=== PATIENT | female | born 1945 | race Caucasian/White ===

== ENCOUNTER 2017-02-09 16:12 | Emergency (ER) | payer MEDICARE ==
[2017-02-09] MEDS ORDERED: HYDROmorphone* 1 MG/ML 1 ML SYR IV ONE ×2 (17:13→18:43)
[2017-02-09] MEDS ORDERED: Ondansetron INJ* 2 MG/ML VIAL IV ONE (17:14)
[2017-02-09] MEDS ORDERED: NS 0.9% 1000 ML* 1,000 ML IV ONE (17:14)
[2017-02-09 17:25] LABS: Hematocrit 45 % (35-47); Hemoglobin 15.1 g/dl (12.0-16.0); Mean Corpuscular HGB Conc 33 g/dl (31-36); Mean Corpuscular Hemoglobin 29 pg (27-31); Mean Corpuscular Volume 88 fL (80-97); Mean Platelet Volume 8 um3 (7.4-10.4); Red Blood Count 5.14 10^6/ul (4.0-5.4); Red Cell Distribution Width 15 % (10.5-15); White Blood Count 7.6 10^3/ul (3.5-10.8)
[2017-02-09 17:38] LABS: Calcium 9.9 mg/dL (8.6-10.3); EGFR African American 98.2 (>60); EGFR Non-African American 76.4 (>60); Globulin 2.9 g/dL (2-4); Potassium 3.6 mmol/L (3.5-5.0); Total Bilirubin 0.6 mg/dL (0.2-1.0); Total Protein 6.9 g/dL (6.4-8.9)
[2017-02-09] MEDS ORDERED: Iohexol 350* (CONTRAST) 500 ML MDV IV ONE (17:53)
--- NOTE | 2017-02-09 18:42 | ED ---
An Patel Anna, scribed for Paola Lopez MD on 02/09/17 at 1707 . Back Pain - HPI Summary HPI Summary: Patient is a 71 y/o female coming to [facility] presenting with constant, worsening back pain between her shoulder blades that began two days ago. Yesterday the pain became worse. She went to the chiropractor yesterday, but it did not alleviate the pain. When she woke up this morning, the pain was at its worst. The pain is now described as severity of 9/10. The pain radiates to her left chest and down her left arm. She denies SOB. She was seen at [facility] this afternoon, and she had an EKG done, which they said looked good. They also did a CXR at that time. - History of Current Complaint Chief Complaint: EDChestPainROMI Stated Complaint: BACK CHEST LEFT ARM PAIN Time Seen by Provider: 02/09/17 16:40 Hx Obtained From: Patient, Family/Coffee Shop Aide - Accompanied by daughter Pain Intensity: 9 - Allergies/Home Medications Allergies/Adverse Reactions: Allergies Allergy/AdvReac Type Severity Reaction Status Date / Time No Known Allergies Allergy Verified 05/18/14 14:01 PMH/Surg Hx/FS Hx/Imm Hx Endocrine/Hematology History: Denies: Hx Diabetes Cardiovascular History: Denies: Hx Hypertension, Hx Pacemaker/ICD History: Denies: Hx Renal Disease Musculoskeletal History: Denies: Hx Osteoporosis Sensory History: Denies: Hx Hearing Aid Psychiatric History: Denies: Hx Panic Disorder - Cancer History Hx Chemotherapy: No Hx Radiation Therapy: No - Surgical History Surgery Procedure, Year, and Place: TONSILECTOMY. Rt HAND - NERVE DAMAGE - REPAIRED. HYSTERECTOMY. BREAST BIOPSY - UNSURE IF CLIP WAS PLACE. D & C Infectious Disease History: No Infectious Disease History: Denies: Traveled Outside the [place] in Last 30 Days - Family History Known Family History: Negative: Cardiac Disease, Diabetes - Social History Lives: Alone Alcohol Use: None Hx Substance Use: No Substance Use Type: Reports: None Hx Tobacco Use: No Smoking Status (MU): Never Smoked Tobacco Review of Systems Positive: Chest Pain - Back pain radiates to chest Negative: Shortness Of Breath Positive: Arthralgia - Back pain radiates down left arm, Myalgia All Other Systems Reviewed And Are Negative: Yes Physical Exam Triage Information Reviewed: Yes Vital Signs On Initial Exam: Initial Vitals Temp Pulse Resp BP Pulse Ox 96.8 F 76 18 217/103 100 02/09/17 16:14 02/09/17 16:14 02/09/17 16:14 02/09/17 16:14 02/09/17 16:14 Vital Signs Reviewed: Yes Appearance: Positive: Well-Appearing, No Pain Distress Skin: Positive: Warm, Skin Color Reflects Adequate Perfusion, Dry Eyes: Positive: EOMI, JAKUB ENT: Positive: Pharynx normal, TMs normal Neck: Positive: Supple, Nontender Respiratory/Lung Sounds: Positive: Clear to Auscultation, Breath Sounds Present. Negative: Rales, Rhonchi, Wheezes Cardiovascular: Positive: RRR. Negative: Murmur, Rub, Other - gallops Abdomen Description: Positive: Nontender, Soft. Negative: Distended, Guarding, Other: - rebound Bowel Sounds: Positive: Present Musculoskeletal: Positive: Strength/ROM Intact, Other - Tender spasm muscle at about T4-T5, left paraspinal.. Negative: Edema Left, Edema Right Neurological: Positive: Normal, Sensory/Motor Intact, Alert, Oriented to Person Place, Time, CN Intact II-III Psychiatric: Positive: Affect/Mood Appropriate Diagnostics - Vital Signs Vital Signs Temp Pulse Resp BP Pulse Ox 02/09/17 16:14 96.8 F 76 18 217/103 100 - Laboratory Lab Results: Lab Results 02/09/17 02/09/17 02/09/17 Range/Units 17:00 17:00 17:00 WBC 7.6 (3.5-10.8) 10^3/ul RBC 5.14 (4.0-5.4) 10^6/ul Hgb 15.1 (12.0-16.0) g/dl Hct 45 (35-47) % MCV 88 (80-97) fL MCH 29 (27-31) pg MCHC 33 (31-36) g/dl RDW 15 (10.5-15) % Plt Count 269 (150-450) 10^3/ul MPV 8 (7.4-10.4) um3 Neut % (Auto) 63.5 (38-83) % Lymph % (Auto) 26.1 (25-47) % Door % (Auto) 7.9 (1-9) % Eos % (Auto) 1.9 (0-6) % Baso % (Auto) 0.6 (0-2) % Absolute Neuts (auto) 4.8 (1.5-7.7) 10^3/ul Absolute Lymphs (auto) 2.0 (1.0-4.8) 10^3/ul Absolute Monos (auto) 0.6 (0-0.8) 10^3/ul Absolute Eos (auto) 0.1 (0-0.6) 10^3/ul Absolute Basos (auto) 0 (0-0.2) 10^3/ul Absolute Nucleated RBC 0 10^3/ul Nucleated RBC % 0 Sodium 138 (133-145) mmol/L Potassium 3.6 (3.5-5.0) mmol/L Chloride 106 (101-111) mmol/L Carbon Dioxide 26 (22-32) mmol/L Anion Gap 6 (2-11) mmol/L BUN 12 (6-24) mg/dL Creatinine 0.75 (0.51-0.95) mg/dL Est GFR ( Amer) 98.2 (>60) Est GFR (Non-Af Amer) 76.4 (>60) BUN/Creatinine Ratio 16.0 (8-20) Glucose 94 (70-100) mg/dL Lactic Acid 0.9 (0.5-2.0) mmol/L Calcium 9.9 (8.6-10.3) mg/dL Total Bilirubin 0.60 (0.2-1.0) mg/dL AST 20 (13-39) U/L ALT 18 (7-52) U/L Alkaline Phosphatase 60 (34-104) U/L Troponin I 0.00 (<0.04) ng/mL Total Protein 6.9 (6.4-8.9) g/dL Albumin 4.0 (3.2-5.2) g/dL Globulin 2.9 (2-4) g/dL Albumin/Globulin Ratio 1.4 (1-3) Result Diagrams: 02/09/17 17:00 02/09/17 17:00 Lab Statement: Any lab studies that have been ordered have been reviewed, and results considered in the medical decision making process. - EKG 1265 Cardiac Rate: Bradycardia - 59 bpm EKG Rhythm: Sinus Rhythm ST Segment: Normal Ectopy: None Back Pain Course/Dx - Course Course Of Treatment: 71 yo female quite hypertensive on arrival no hx of htn with back pain, there is a notable area of spasm but given sbp over 200, a dissection work has been initiated. Pt is awaiting a reading on a CTA chest, abd pelvis, if neg she will go home with meds already ordered at her pharmacy. pt to be signed out to Dr. Gutierrez for final dispostion - Diagnoses Provider Diagnoses: Back pain Discharge - Discharge Plan Condition: Stable Disposition: OTHER Discharge Disposition Comment: final disposition by Dr. Gutierrez The documentation as recorded by the An renteria Anna accurately reflects the service I personally performed and the decisions made by me, Paola Lopez MD.
[2017-02-09] MEDS ORDERED: LORazepam INJ* 2 MG/ML 1 ML VIAL IV PUSH ONE (18:44)
--- NOTE | 2017-02-09 18:47 | RAD ---
INDICATION: Back pain radiating to the chest and LEFT arm. Hypertensive. Nausea. COMPARISON: August 05, 2015 chest radiograph TECHNIQUE: Multidetector CT images were obtained from the lung apices to the ischial tuberosities with 100 mL Omnipaque 350 IV contrast. Arterial phase enhancement. Multiplanar reformation including maximum intensity projections. 3-D arterial volume rendering. No oral contrast administered. CHEST REPORT: Aside from minimal subsegmental atelectasis or pleural-parenchymal scarring the lungs and pleural spaces are clear. Negative for pneumothorax. Negative for thoracic lymphadenopathy, cardiomegaly, pericardial effusion. Normal diameter thoracic aorta with minimal atherosclerotic plaque. Negative for aortic dissection. Unremarkable aortic arch branch vessels. No abnormality of the central pulmonary arteries evident. Negative for fracture or suspicious thoracic osseous lesion. Multilevel mild thoracic degenerative spondylosis. Mild osteoarthritis at the shoulders. CHEST IMPRESSION: 1. Negative for aneurysm or dissection of the thoracic aorta. 2. No acute intrathoracic process evident. ABDOMEN PELVIS REPORT: Arterial phase only enhancement limits assessment of the solid viscera. No CT abnormality of the liver, gallbladder, pancreas, spleen. Negative for CT abnormality of the upper GI, small bowel, or retrocecal appendix. Moderate colonic diverticulosis without findings of diverticulitis. Negative for ascites, free air, or significant hernias. Normal adrenal glands. Symmetric cortical enhancement of the kidneys. Multiple parapelvic cysts of the LEFT kidney. No suspicious renal lesions or hydronephrosis. Unremarkable ureters and grossly unremarkable largely decompressed urinary bladder. Post hysterectomy. No suspicious finding of the adnexal regions. Negative for lymphadenopathy. Normal diameter abdominal aorta and iliac arteries with only minimal atherosclerotic plaque. Negative for dissection of the abdominal aorta. Unremarkable visceral arteries. Physiologic partial distention of the IVC. Negative for suspicious osseous lesions. Multilevel lumbar sacral spine degenerative spondylosis and facet joint osteoarthritis. Mild bilateral hip joint osteoarthritis. ABDOMEN PELVIS IMPRESSION: 1. Negative for aneurysm or dissection of the abdominal aorta. 2. Moderate colonic diverticulosis without findings of diverticulitis. Normal appendix documented. 3. No acute abdominal pelvic pathologic process evident.
[2017-02-09] MEDS ORDERED: Ketorolac INJ* 30 MG/ML 1 ML VIAL IV ONE (19:03)
[2017-02-09 20:38] VITALS: BP 171/84
[2017-02-09] MEDS ORDERED: Ondansetron ODT TAB* 4 MG ONE (20:51)
== END 2017-02-09 21:06 | disposition home or self-care (01) ==
LOC: ED 16:12
DX: M54.9 Dorsalgia, unspecified (principal); R07.9 Chest pain, unspecified; M79.1 Myalgia
CPT/HCPCS: 36415; 71275; 74174; 80053; 83605; 84484; 85025; 93005; 96374; 96375; 99283; J1170; J1885; J2060; J2405; Q9967

== ENCOUNTER 2019-08-26 20:11 | Inpatient (IN) | payer MEDICARE ==
--- OUTSIDE RECORDS SUMMARY | 2019-08-26 20:38 | XMS REPORT | Continuity of Care Document ---
:1945 External Reference #:[id number] Author Name August Bethea M.D. Address [address] [place] [address] Care Team Providers Name Role Phone Yelena Blunt M.D. 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 Onset: 05/25/2015 Depressive disorder Jody Bynum O.D. Onset: 05/25/2015 Nuclear senile cataract Jody Bynum O.D. Onset: 05/25/2015 Internal hordeolum Jody Bynum O.D. Onset: 05/25/2015 Myopia Jody Bynum O.D. Onset: 05/25/2015 Regular astigmatism Jody Bynum O.D. Onset: 05/25/2015 Presbyopia Jody Bynum O.D. Onset: 05/25/2015 Amblyopia August Bethea M.D. Onset: 07/27/2016 Social History Type Date Description Comments Sex Unknown ETOH Use Occasionally consumes alcohol Tobacco Use Start: Unknown End: Patient is a former smoker Unknown Recreational Drug Use Denies Drug Use Smoking Status Reviewed: 08/05/19 Patient is a former smoker Allergies, Adverse Reactions, Alerts Active Allergies Reaction Severity Comments Date Codeine 05/25/2015 Medications Active Medications SIG Qnty Indications Ordering Provider Date Blink Tears Lubricating as needed August Bethea, 07/26/2016 Eye Drops M.D. 0.25% Solution Citalopram Hydrobromide Unknown 10mg Tablets Cinnamon 1 by mouth every Unknown 500mg Capsules day Vitamin C Unknown 500mg Chewtabs Vitamin D every day Unknown 1000Unit Tablets Calcium 600+D Unknown [id number] Tablets Vitamin E Complex Unknown 1000Unit Capsules Vitamin B Complex Unknown Tablets Aspir-81 1 by mouth every Unknown 81mg Tablets DR other day Immunizations Description No Information Available Vital Signs Description No Information Available Results Description No Information Available Procedures Description No Information Available Medical Devices Description No Information Available Encounters Description No Information Available Assessments Date Code Description Provider 08/05/2019 H25.13 Age-related nuclear cataract, bilateral August Bethea M.D. Plan of Treatment 08/05/2019 - August Bethea M.D.H25.13 Age-related nuclear cataract, bilateralComments:Smoking can increase the risk of developing or worsening any eye related disease, as well as affect your overall health. If you are a smoker , we strongly recommend that you quit.If you are not a smoker, we strongly recommend that you do not start. You have been diagnosed with cataracts. If you are happy with your vision as it is now, then we will see you at your next scheduled appointment. If you feel like your vision is getting worse before your scheduled appointment, please call Patricia at [phone].Follow up:2 Year Follow Up DFE You can expect to have your eyes dilated at your next visit. If Dr. Bethea orders any additional testing, it may require extra time. We recommend that you bring sunglasses, as dilation drops often make you light sensitive until they wear off. We always recommend you bring someone to drive you home if you are uncomfortable driving with your eyes dilated. If you have any questions before your next visit, feel free to call our office at . Functional Status Description No Information Available Mental Status Description No Information Available Referrals Description No Information Available
[2019-08-26 20:49] LABS: ABS Basophils 0.1 10^3/ul (0-0.2); ABS Eosinophils 0.2 10^3/ul (0-0.6); ABS Lymphocytes 1.8 10^3/ul (1.0-4.8); ABS Monocytes 0.5 10^3/ul (0-0.8); ABS Neutrophils 5.7 10^3/ul (1.5-7.7); Eosinophil % 2.3 %; Hematocrit 46 % (35-47); Lymphocyte % 22.2 %; Mean Corpuscular HGB Conc 35 g/dL (31-36); Mean Corpuscular Hemoglobin 31 pg (27-31); Mean Corpuscular Volume 89 fL (80-97); Mean Platelet Volume 7.4 fL (7.4-10.4); Platelet Count 291 10^3/uL (150-450); Red Blood Count 5.21 10^6 /uL (3.70-4.87); Red Cell Distribution Width 14 % (10-15); White Blood Count 8.3 10^3/uL (3.5-10.8)
[2019-08-26 21:09] LABS: Blood Urea Nitrogen 18 mg/dL (6-24); CO2 Carbon Dioxide 24 mmol/L (22-32); Chloride 103 mmol/L (101-111); Glucose 117 mg/dL (70-100); Sodium 137 mmol/L (135-145)
[2019-08-26 21:10] LABS: ALT 19 U/L (7-52); Albumin/Globulin Ratio 1.6 (1-3); Alkaline Phosphatase 62 U/L (34-104); BUN/Creatinine Ratio 25.7 (8-20); Calcium 9.4 mg/dL (8.6-10.3); EGFR African American 99.5 (>60); EGFR Non-African American 82.3 (>60); Globulin 2.5 g/dL (2-4); INR 0.97 (0.82-1.09); Total Protein 6.5 g/dL (6.4-8.9)
[2019-08-26 21:15] LABS: Troponin I 0.81 ng/mL (<0.04)
[2019-08-26] MEDS ORDERED: Aspirin 81 mg CHEW TAB* 81 MG TAB.CHEW PO ONE (21:27)
[2019-08-26] MEDS ORDERED: Nitroglycerin TAB 0.4 MG* 0.4 MG TAB SL ONE (21:27)
[2019-08-26] MEDS ORDERED: Heparin DRIP 25,000 UNITS(*) 25,000 UNITS/500 ML BAG IV SCH (21:30)
--- NOTE | 2019-08-26 21:31 | ED ---
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 She then experienced some shortness of breath and slight nausea , so she took one baby aspirin and drove herself here. The chest pain is in the mid-sternal region and radiates up through her throat and to the L side of her jaw. It is described as tightness. She denies vomiting, anxiety, diaphoresis, myalgia in LE, LE edema, or cough. She had a stress test in either [address] Ponce, but has no cardiac hx. - History of Current Complaint Chief Complaint: EDChestPainROMI Time Seen by Provider: 08/26/19 21:18 Hx Obtained From: Patient Onset/Duration: Started Hours Ago, Still Present Time of Onset: 19:30 Timing: Constant, Lasting Hours Initial Severity: Moderate Current Severity: Moderate Pain Intensity: 4 Pain Scale Used: 0-10 Numeric Chest Pain Location: Mid Sternal Chest Pain Radiates: Yes Chest Pain Radiates To:: Jaw Character: Tightness Aggravating Factor(s): Nothing Alleviating Factor(s): Nothing Associated Signs and Symptoms: Positive: Chest Pain, Shortness of Breath, Nausea. Negative: Anxiety, Diaphoresis, Calf Pain/Swelling, Vomiting, Edema - Allergy/Home Medications Allergies/Adverse Reactions: Allergies Allergy/AdvReac Type Severity Reaction Status Date / Time No Known Allergies Allergy Verified 05/18/14 14:01 PMH/Surg Hx/FS Hx/Imm Hx Previously Healthy: Yes Endocrine/Hematology History: Denies: Hx Diabetes, Other Endocrine/Hematological Disorders - blood clot Cardiovascular History: Reports: Hx Hypercholesterolemia Denies: Hx Hypertension, Hx Pacemaker/ICD History: Denies: Hx Renal Disease Musculoskeletal History: Denies: Hx Osteoporosis Sensory History: Denies: Hx Hearing Aid Psychiatric History: Denies: Hx Panic Disorder - Cancer History Hx Chemotherapy: No Hx Radiation Therapy: No - Surgical History Surgery Procedure, Year, and Place: TONSILECTOMY. Rt HAND - NERVE DAMAGE - REPAIRED. HYSTERECTOMY. BREAST BIOPSY - UNSURE IF CLIP WAS PLACE. D & C Infectious Disease History: No Infectious Disease History: Denies: Traveled Outside the [place] in Last 30 Days - Family History Known Family History: Negative: Cardiac Disease, Diabetes - Social History Alcohol Use: None Hx Substance Use: No Substance Use Type: Reports: None Hx Tobacco Use: No Smoking Status (MU): Never Smoked Tobacco Review of Systems Negative: Skin Diaphoresis Positive: Chest Pain Positive: Shortness Of Breath. Negative: Cough Positive: Nausea. Negative: Vomiting Negative: Myalgia, Edema Negative: Anxious All Other Systems Reviewed And Are Negative: Yes Physical Exam - Summary Physical Exam Summary: Constitutional: Well-developed, Well-nourished, Alert. (-) Distressed Skin: Warm, Dry HENT: Normocephalic; Atraumatic Eyes: Conjunctiva normal Neck: Musculoskeletal ROM normal neck. (-) JVD, (-) Stridor, (-) Tracheal deviation Cardio: Rhythm regular, rate normal, Heart sounds normal; Intact distal pulses; Radial pulses are 2+ and symmetric. (-) Murmur Pulmonary/Chest wall: Effort normal. (-) Respiratory distress, (-) Wheezes, (-) Rales Abd: Soft, (-) tenderness, (-) Distension, (-) Guarding, (-) Rebound Musculoskeletal: (-) Edema Lymph: (-) Cervical adenopathy Neuro: Alert, Oriented x3 Psych: Mood and affect Normal Triage Information Reviewed: Yes Vital Signs On Initial Exam: Initial Vitals Temp Pulse Resp BP Pulse Ox 98.2 F 72 18 142/75 99 08/26/19 20:17 08/26/19 20:17 08/26/19 20:17 08/26/19 20:17 08/26/19 20:17 Vital Signs Reviewed: Yes Procedures - Sedation Patient Received Moderate/Deep Sedation with Procedure: No Diagnostics - Vital Signs Vital Signs Temp Pulse Resp BP Pulse Ox 08/26/19 20:17 98.2 F 72 18 142/75 99 - Laboratory Lab Results: Lab Results 08/26/19 08/26/19 08/26/19 Range/Units 20:40 20:40 20:40 WBC 8.3 (3.5-10.8) 10^3/uL RBC 5.21 H (3.70-4.87) 10^6 /uL Hgb 16.0 (12.0-16.0) g/dL Hct 46 (35-47) % MCV 89 (80-97) fL MCH 31 (27-31) pg MCHC 35 (31-36) g/dL RDW 14 (10-15) % Plt Count 291 (150-450) 10^3/uL MPV 7.4 (7.4-10.4) fL Neut % (Auto) 68.4 % Lymph % (Auto) 22.2 % [place] % (Auto) 6.3 % Eos % (Auto) 2.3 % Baso % (Auto) 0.8 % Absolute Neuts (auto) 5.7 (1.5-7.7) 10^3/ul Absolute Lymphs (auto) 1.8 (1.0-4.8) 10^3/ul Absolute Monos (auto) 0.5 (0-0.8) 10^3/ul Absolute Eos (auto) 0.2 (0-0.6) 10^3/ul Absolute Basos (auto) 0.1 (0-0.2) 10^3/ul Absolute Nucleated RBC 0.0 10^3/ul Nucleated RBC % 0.0 INR (Anticoag Therapy) 0.97 (0.82-1.09) Sodium 137 (135-145) mmol/L Potassium Pending Chloride 103 (101-111) mmol/L Carbon Dioxide 24 (22-32) mmol/L Anion Gap Pending BUN 18 (6-24) mg/dL Creatinine 0.70 (0.51-0.95) mg/dL Est GFR ( Amer) 99.5 (>60) Est GFR (Non-Af Amer) 82.3 (>60) BUN/Creatinine Ratio 25.7 H (8-20) Glucose 117 H (70-100) mg/dL Calcium 9.4 (8.6-10.3) mg/dL Total Bilirubin 0.40 (0.2-1.0) mg/dL AST Pending ALT 19 (7-52) U/L Alkaline Phosphatase 62 (34-104) U/L Troponin I 0.81 H* (<0.04) ng/mL Total Protein 6.5 (6.4-8.9) g/dL Albumin 4.0 (3.2-5.2) g/dL Globulin 2.5 (2-4) g/dL Albumin/Globulin Ratio 1.6 (1-3) Result Diagrams: 08/26/19 20:40 08/26/19 21:46 Lab Statement: Any lab studies that have been ordered have been reviewed, and results considered in the medical decision making process. - Radiology CXR Radiology Interpretation Completed By: ED Physician Summary of Radiographic Findings: Bilateral pulmonary edema. Pending official radiology report. - EKG 2010 Cardiac Rate: NL - 75bpm EKG Rhythm: Sinus Rhythm ST Segment: Non-Specific Ectopy: None Summary of EKG Findings: EKG at 2010 shows NSR at 75bpm with ST elevation of 1mm in lead v2, and 0.5mm ST depression in lead III. ED physician has reviewed and interpreted this report. 2126 Cardiac Rate: NL - 75bpm EKG Rhythm: Sinus Rhythm ST Segment: Non-Specific Ectopy: None EKG Comparison: Other Summary of EKG Findings: EKG at 2126 shows NSR at 70bpm with 1mm ST elevation in lead v2, minimal ST elevation in v3, and 0.5mm ST depression in lead III. ED physician has reviewed and interpreted this report. Chest Pain Course/Dx - Course Course Of Treatment: Patient is here with him and STEMI. Patient had chest pain upon arrival with an EKG that showed [address] elevation in V3 with mild depression in lead 3. Patient did not meet STEMI criteria on initial or subsequent EKG. Patient was given aspirin and one dose of nitroglycerin with resolution of her pain. Cardiol G was called and recommended starting a heparin drip and giving a dose of Lopressor IV. They also recommended 25 mg of Lopressor twice a day by mouth. Patient was admitted to medicine for further management - Diagnoses Provider Diagnoses: NSTEMI (non-ST elevated myocardial infarction) - Provider Notifications Discussed Care Of Patient With: Dar Turner Time Discussed With Above Provider: 22:25 Instructed by Provider To: Admit As Inpatient - Critical Care Time Critical Care Time: 30-74 min Discharge ED - Sign-Out/Discharge Documenting (check all that apply): Patient Departure - Discharge Plan Condition: Stable Disposition: ADMITTED TO [facility] - Billing Disposition and Condition Condition: STABLE Disposition: Admitted to [facility] - Attestation Statements Document Initiated by Scribe: Yes Documenting Scribe: Maricel East Provider For Whom Scribe is Documenting (Include Credential): Garfield Palacios MD. Scribe Attestation: Maricel Patel, scribed for Garfield Palacios MD. on 08/27/19 at 0246. Scribe Documentation Reviewed: Yes Provider Attestation: The documentation as recorded by the scribe, Maricel East accurately reflects the service I personally performed and the decisions made by me, Garfield Palacois MD. Status of Scribe Document: Viewed Consult Consult: 2137 - I spoke with Dr. Cintron of cardiology who recommends giving the pt NTG, Lopressor, ASA, and a Heparin drip. 2224 - I spoke with Dr. Turner who accepts the pt for admission to [facility].
[2019-08-26] MEDS ORDERED: NS 0.9% 1000 ML** 1,000 ML IV ONE (21:34)
[2019-08-26 21:42] LABS: Anion Gap 10 mmol/L (2-11); Potassium 3.5 mmol/L (3.5-5.0)
[2019-08-26] MEDS ORDERED: Metoprolol Tartrate IV* 1 MG/ML 5 ML VIAL IV ONE (21:42)
[2019-08-26 21:46] LABS: AST 20 U/L (13-39)
[2019-08-26] MEDS ORDERED: Heparin VIAL(*) 5000 UNITS/ML VIAL (FIVE THOUSAND) IV SCH (22:00)
[2019-08-26 22:16] LABS: Troponin I 2.78 ng/mL (<0.04)
[2019-08-26 22:42] LABS: Blood Urea Nitrogen 17 mg/dL (6-24)
[2019-08-27 00:07] LABS: Troponin I 6.18 ng/mL (<0.04)
[2019-08-27] MEDS ORDERED: Ondansetron INJ* 2 MG/ML VIAL IV ONE (00:09)
[2019-08-27] MEDS ORDERED: Clopidogrel TAB* 300 MG PO ONE (01:15)
[2019-08-27] MEDS ORDERED: Atorvastatin* 80 MG TAB PO ONE (01:16)
[2019-08-27] MEDS ORDERED: IBUPROFEN 400 MG PO PRN (01:27)
[2019-08-27 02:58] LABS: Troponin I 4.42 ng/mL (<0.04)
--- NOTE | 2019-08-27 03:16 | HP ---
CC: Dr. Yelena Blunt * ADMISSION HISTORY AND PHYSICAL: DATE OF ADMISSION: PRIMARY CARE PHYSICIAN: Yelena Blunt MD at [place]. CHIEF COMPLAINT: Chest pain. HISTORY OF PRESENT ILLNESS: This is a 73-year-old female with past medical history of dyslipidemia, who has not taken her statins due to some dizziness and LFT abnormalities in the past, who was giving a talk to [facility] when she started having this substernal chest pain radiating to her jaw and the left shoulder. Pain was more of a pressure like, 4/10 in intensity which got relieved with sublingual nitro, accompanied by some shortness of breath and some slight nausea. The patient otherwise offers no palpitations. She did have episodes of diarrhea, but no episode of vomiting. No other abdominal pain. No numbness, tingling, or weakness. No other fever, chills, urinary or burning sensation. PAST MEDICAL HISTORY: Depression, irritable bowel syndrome, hyperlipidemia; but as mentioned, the patient has been off the generic Lipitor as originally she was taking brand name Lipitor for many years and was fine, but when she took the generic Lipitor her LFTs went up the first time around and then she quit taking it and then after reconvinced by the primary care physician, she did try to take it again at which point she felt dizzy and completely gave up on any statins. She denied any muscle aches from the statins, however. PAST SURGICAL HISTORY: She has had tonsillectomy, right hand nerve repair surgery, D and C, and then total abdominal hysterectomy with bilateral salpingo- oophorectomy and a right breast biopsy which was noted to be benign. MEDICATIONS: Home medications: The patient is currently on Celexa 10 mg oral daily. Rest of the medications she only takes it as [id number] include: 1. Vitamin C 500 mg oral daily. 2. Calcium 600 mg oral daily. 3. Aspirin 81 mg as needed. 4. Vitamin D3 of 1000 units oral daily. 5. Selenium 200 mcg oral daily. 6. Advil 400 mg as needed for pain. ALLERGIES: No known drug allergies. FAMILY HISTORY: Mother at age 74, had breast cancer and emphysema and also had a history of smoking. Father at age 86 with dementia complications. SOCIAL HISTORY: She quit smoking in 1973, prior to that had about [id number] history of smoking. She does drink a glass of wine with dinner, roughly 4 times a week, but never exceeds a glass. Denies any drug use. Used to work as book keeper, currently retired. She is , lives by herself and dogs. She is otherwise full code and her daughter, Tory, is her healthcare proxy. REVIEW OF SYSTEMS: A 14-point review of systems did not reveal any information other than the ones stated in the HPI. PHYSICAL EXAMINATION GENERAL: The patient is awake, alert, and oriented x3; does not appear to be in any acute distress. VITAL SIGNS: BP was noted to 126/83, heart rate 76, respiration rate 17, saturation 96% on room air. HEAD AND NECK: Atraumatic and normocephalic. Bilateral pupils are reactive. Oral mucosa is moist. Neck supple. No jugular venous distention. LUNGS: Clear to auscultation bilaterally. No wheezes, rhonchi, or rales. HEART: S1 and S2. Regular rate and rhythm. ABDOMEN: Soft, nontender, and nondistended. EXTREMITIES: The patient had some trace pedal edema. LABORATORY DATA: CBC was within normal limits. Coagulation profile within normal limits. Comprehensive metabolic panel was unremarkable except for a minimally elevated random glucose at 117. Troponin trending upwards, initial troponin was 0.81, subsequent was 2.78, and the one after that was 6.18. EKG: Initial EKG showed sinus rhythm at 70 beats per minute with a single millimeter ST elevation in the V2, but none in the rest of the leads. When compared to her older EKG from [address] elevation in lead V2, the rest of the leads appear to be similar. Portable chest x-ray, was a poor penetration, appears to be having some vascular congestion. The official read by Radiology is still pending. IMPRESSION: This is a 73-year-old female, here with chest pain, noted to have non- ST-elevation myocardial infarction. ASSESSMENT: 1. Chest pain secondary to [id number] myocardial infarction. Continue heparin drip. We will start loading dose with aspirin and Plavix and continue with daily aspirin and Plavix. I will also give 1 dose of Lipitor, even though the patient states that she has some reactions. We will repeat a lipid panel in the morning and consider starting her on a daily statin. Dr. Cintron was consulted in the ER by the ER team who will evaluate the patient in the morning. We will keep the patient n.p.o. for possible cardiac cath in the morning. In the meantime, we will continue with the heparin drip that was started in the ER and serial troponins to see a peak of troponin. We will also get an echocardiogram in the morning to evaluate the ejection fraction and get an A1c to evaluate any secondary risk factors for her [place]. 2. History of depression and irritable bowel syndrome. Continue with Celexa. 3. DVT prophylaxis. The patient is already on therapeutic heparin. 4. Code status. The patient is full code with her daughter, Tory, being her healthcare proxy. [id number]/[facility]PS #: [id number] MAE
[2019-08-27 04:24] LABS: ABS Lymphocytes 1.4 10^3/ul (1.0-4.8); ABS Monocytes 0.5 10^3/ul (0-0.8); ABS Neutrophils 10.3 10^3/ul (1.5-7.7); Eosinophil % 0.1 %; Hematocrit 45 % (35-47); Hemoglobin 15.1 g/dL (12.0-16.0); Lymphocyte % 11.1 %; Mean Corpuscular HGB Conc 34 g/dL (31-36); Mean Corpuscular Hemoglobin 30 pg (27-31); Mean Corpuscular Volume 89 fL (80-97); Mean Platelet Volume 7.5 fL (7.4-10.4); Platelet Count 272 10^3/uL (150-450); Red Blood Count 5.07 10^6 /uL (3.70-4.87); Red Cell Distribution Width 14 % (10-15); White Blood Count 12.3 10^3/uL (3.5-10.8)
[2019-08-27 04:40] LABS: BUN/Creatinine Ratio 21.3 (8-20); Calcium 9.1 mg/dL (8.6-10.3); EGFR African American 116.7 (>60); EGFR Non-African American 96.4 (>60); HDL Cholesterol 52.3 mg/dL; Potassium 3.7 mmol/L (3.5-5.0)
[2019-08-27] MEDS ORDERED: Diazepam TAB(*) 5 MG PO PRN (09:07)
[2019-08-27] MEDS ORDERED: diPHENhydraMINE PO* 50 MG PO PRN (09:07)
[2019-08-27] MEDS ORDERED: NS 0.9% 1000 ML** 1,000 ML IV SCH ×2 (09:15→13:41)
--- NOTE | 2019-08-27 09:21 | ECHO ---
*[facility]* [place] [address] Fax #: [phone] Transthoracic Echocardiogram Patient: Isabela Chen V : 1945 Study Date: 08/27/2019 Age: 73 Gender: F HR: 66 bpm Height: 68 in /172.7 cm BSA: 1.97 m^2 Weight: 182.6 lb /83 kg BMI: 27.8 kg/m^2 *[place] [employer]: * Lisa Rojas [facility] *Referring Physician: * Dar Turner *Reading Physician: * Concha Joseph MD Indications: Chest Pain, unspecified. History: Risk factors: Dyslipidemia. Conclusions Summary: - Left ventricle: Systolic function is mildly reduced. The estimated ejection fraction is 45-50%. Hypokinesis of the mid-apicalanteroseptal, anterolateral, and inferoseptal myocardium. Hypokinesis of the apicalanterior and inferior myocardium. - Mitral valve: There is mild regurgitation, with multiple jets. - Ascending aorta: The ascending aorta is mildly dilated. - No previous echocardiogram available. Study data: Transthoracic echocardiogram. Procedure: Transthoracic echocardiography was performed. Image quality was fair. Complete 2D, spectral Doppler, and color flow Doppler. Location: Bedside. Patient status: Inpatient. Patient room number: 443-02. Findings Left ventricle: The cavity size is normal. There is mild asymmetric hypertrophy of the septum. There is a prominent septal knuckle. Systolic function is mildly reduced. The estimated ejection fraction is 45-50%. Regional wall motion abnormalities: Hypokinesis of the mid-apicalanteroseptal, anterolateral, and inferoseptal myocardium. Hypokinesis of the apicalanterior and inferior myocardium. Hypokinesis of the mid-apicalinferolateral myocardium. Doppler parameters are consistent with abnormal left ventricular relaxation (grade 1 diastolic dysfunction). Right ventricle: The cavity size is mildly dilated. Wall thickness is mildly increased. Systolic function is normal. Left atrium: The atrium is normal in size. Right atrium: The atrium is normal in size. Mitral valve: The posterior mitral valve annulus appears mildly calcified. The leaflets are mildly thickened. There is no evidence of stenosis. There is mild regurgitation, with multiple jets. Aortic valve: The valve is trileaflet. The leaflets are mildly thickened. There is no evidence of stenosis. There is trace regurgitation. Tricuspid valve: The leaflets are normal thickness. There is no evidence of stenosis. There is trace regurgitation. Pulmonic valve: The leaflets are normal thickness. There is no evidence of stenosis. There is trace regurgitation. Aorta: Aortic root: The aortic root is appears normal. Ascending aorta: The ascending aorta is mildly dilated. Aortic arch: The aortic arch is appears normal. Pericardium: A prominent pericardial fat pad is present. There is no significant pericardial effusion. Pulmonary arteries: The main pulmonary artery is normal-sized. Systolic pressure can not be accurately estimated. Systemic veins: Inferior vena cava: The vessel is normal in size. There is (>= 50%) respiratory change in the IVC dimension. Measurements Left ventricle Value Ref Right atrium continued Value Ref JAMARI, LAX 5.0 cm 3.8 - 5.2 ML dim, ES, A4C 4.0 cm 2.6 - 4.4 ESD, LAX 3.1 cm 2.2 - 3.5 SI dim, ES, A4C 4.4 cm 3.4 - 5.3 FS, LAX 38 % 27 - 45 Estimated RAP 3 mm Hg --------- PW, ED, LAX (H) 1.0 cm 0.6 - 0.9 FS 38 % - 45 Aortic valve Value Ref PW, ED (H) 1.0 cm 0.6 - 0.9 Heriberto diam, ED 1.9 cm --------- PW/ID, ED 0.19 Peak v, S 1.15 m/sec --------- E', lat heriberto, TDI (L) 6.2 cm/sec >=10.0 VTI, S 24.6 cm -- ------- E/e', lat heriberto, 14 Mean grad, S 4.0 mm Hg ----- ---- TDI Peak grad, S 5.0 mm Hg --------- E', med heriberto, TDI (L) 4.6 cm/sec >=7.0 LVOT/AV, VTI ratio 0.93 -- ------- E/e', med heriberto, 18 BONNIE, VTI 2.94 cm^2 ----- ---- TDI BONNIE, Vmax 2.98 cm^2 --------- E', avg, TDI 5.4 cm/sec E/e', avg, TDI (H) 16 <=14 Mitral valve Value Re f Peak E 0.84 m/sec --------- LVOT Value Ref Peak A 1.08 m/sec --------- Diam, S 2.00 cm Decel time 229 ms --------- Area 3.1 cm^2 Peak grad, D 2.8 mm Hg --------- Peak andrea, S 1.09 m/sec Peak E/A ratio 0.8 --------- VTI, S 23.0 cm Mean grad, S 3 mm Hg Pulmonic valve Value Ref SV 73 ml Peak v, S 0.81 m/sec --------- SV/bsa 37 ml/m^2 Peak grad, S 3.0 mm Hg --------- Ventricular septum Value Ref Aortic root Value Ref IVS, ED (H) 1.2 cm 0.6 - 0.9 Root diam 3.0 cm <4.1 Root max diam, ED 3.0 cm <4.1 Right ventricle Value Ref AW thickness, ED (H) 1.0 cm 0.1 - 0.5 Ascending aorta Value Ref JAMARI, LAX 3.4 cm AAo AP diam, S 3.8 cm --------- JAMARI minor ax, (H) 3.8 cm 1.9 - 3.5 A4C mid Aortic arch Value Ref Arch diam 2.3 cm --------- Left atrium Value Ref AP dim, ES 3.50 cm 2.70 - Decending aorta Value Ref 3.80 Avril peak andrea 0.54 m/sec --------- ML dim, A4C 3.6 cm SI dim, A4C 4.6 cm Inferior vena cava Value Ref Vol/bsa, ES, 1-p 20 ml/m^2 11 - 40 Diam 1.8 cm --------- A4C Vol/bsa, ES, A/L 25 ml/m^2 16 - 34 Right atrium Value Ref SI dim, ES 4.4 cm 3.4 - 5.3 Legend: (L) and (H) shavon values outside specified reference range. Prepared and electronically signed by Concha Joseph MD 08/27/2019 09:21
[2019-08-27] MEDS: Ascorbic Acid TAB* 500 MG PO SCH (09:30)
[2019-08-27] MEDS: Clopidogrel TAB* 75 MG PO SCH (09:30)
[2019-08-27] MEDS: Cholecalciferol TAB* 1000 UNITS PO SCH (09:30)
[2019-08-27] MEDS: Calcium Carbonate TAB* 1250 MG (CALCIUM 500 MG) PO SCH (09:30)
[2019-08-27] MEDS: Citalopram TAB* 10 MG PO SCH (09:30)
[2019-08-27] MEDS: Vitamin B Complex TAB PO SCH (09:31)
[2019-08-27] MEDS: Metoprolol Tartrate TAB* 25 MG PO SCH ×2 (09:31→21:00)
[2019-08-27] MEDS: Aspirin 81 mg CHEW TAB* 81 MG TAB.CHEW PO SCH (09:31)
[2019-08-27] MEDS: SELENIUM 200 MCG PO SCH (10:17)
--- NOTE | 2019-08-27 10:39 | CONS ---
CC: Dr. Yelena Blunt, [facility] * CONSULTATION REPORT: DATE OF CONSULT: 08/27/19 ATTENDING PHYSICIAN: Dr. Joseph, Cardiology * (DICTATED BY SINA GUTIERREZ NP ) PRIMARY PHYSICIAN: Dr. Yelena Blunt, [facility] PRIMARY PUMP ERECTOR: Dr. Shaheen Ponce. CHIEF COMPLAINT: Chest pain. HISTORY OF PRESENT ILLNESS: This is a pleasant 73-year-old female patient with a notable history of diverticulosis, hyperlipidemia, prior liver injury on atorvastatin therapy, who presented to [facility] on 08/26/19 due to ongoing substernal chest pain radiating to her neck with associated nausea and diaphoresis. The patient states she has been in her usual state of health. She has been off statin therapy since sustaining liver injury from atorvastatin. She states otherwise she has been in her usual state of health. She remains active, participating in agility courses with her dogs. She states perhaps she has been noticing slight dyspnea on exertion, but is unsure if that has been significant enough to state for certainty that it is new. Apparently, yesterday evening around 7 p.m., she was meeting with the [facility] Board of Representatives to discuss an upcoming dog show. Apparently, she started to develop substernal chest pain described as an ache radiating into her neck with associated shortness of breath. She drove herself home and called her daughter who instructed the patient she present to the emergency department. According to the patient, she took aspirin and [place] herself [place] [facility] [place]. ECG was obtained which did reveal anterior ST segment abnormalities. Cardiology was called and recommended to initiate IV heparin therapy and Lopressor therapy. The patient was given sublingual nitroglycerin and chest pain resolved with no recurrence. She was admitted for NSTEMI. Troponin peaked at 2330 on 08/26/19 at 6.18. She has been n.p.o. since then and again denies recurrent symptoms since given nitroglycerin yesterday evening in the emergency department. She offers no other complaints. Denies recent illness or hospitalization or surgical procedures. Last echocardiogram, according to our medical records, was 08/22/17; per report , LVEF 55% to 60%, mild LVH, normal wall motion, mild mitral regurgitation, ascending aorta was 3.8 cm. Last ischemic evaluation was in 2017 via stress echo. Per report obtained through our office, the patient was able to exercise for 10 minutes achieving 12.8 METs. Her resting blood pressure was 158/96. She had a normal blood pressure response. She did not develop chest pain. There was no ischemic echocardiogram changes with exercise, thus study was low risk. PAST MEDICAL HISTORY: 1. A 3.8 cm ascending aortic aneurysm. 2. Mild mitral regurgitation. 3. Dyslipidemia. 4. Depression. 5. Hyperlipidemia. 6. Prior liver injury related to atorvastatin therapy. PAST SURGICAL HISTORY: 1. Rectal nodule, biopsy in 2005, per patient benign. 2. Tonsillectomy. 3. D and C. 4. Total abdominal hysterectomy with oophorectomy. 5. Right breast biopsy. HOME MEDICATIONS: Per admission med rec. ALLERGIES: Includes ATORVASTATIN which causes elevated liver function tests; otherwise denies contrast dye, shellfish, red dye, or aspirin allergies. FAMILY HISTORY: Father at the age of 86 due to complications from dementia. Mother at the age of 74 due to complications from breast cancer and COPD; otherwise no notable cardiovascular disease history in first- degree relatives. SOCIAL HISTORY: The patient is a former tobacco user, quit in 1973. She consumes 4 to 5 glasses of wine a week. Denies illegal drug use. She is and lives home alone with her 5 dogs. REVIEW OF SYSTEMS: All systems have been reviewed and otherwise negative except as above mentioned in the HPI. PHYSICAL EXAMINATION: Temperature 96.7, pulse 72, respirations 18, oxygenation 97% on room air, blood pressure of 118/69. General: The patient is resting in bed with daughter at bedside, appears in no apparent distress, cooperative with examination. She is A and O x3. HEENT: Head is atraumatic, normocephalic. Oral mucosa is moist. Tongue is midline. Neck: Supple. Trachea is midline. No JVD. No carotid bruits. Cardiac: Normal S1, S2. Regular rate and rhythm. No murmur, rub or gallop noted. Lungs: Auscultated posteriorly. No evidence of adventitious breath sounds. Peripheral vascular: 2+ radial pulse palpated bilaterally and symmetrically. 3+ dorsalis pedis pulse palpated bilaterally and symmetrically. Skin: Intact. No evidence of jaundice, rash, or ecchymosis appreciated. DIAGNOSTIC STUDIES/LAB DATA: Blood work from 08/27/19: Sodium 139, potassium 3.7, chloride 108, carbon dioxide 25, BUN 13, creatinine 0.61, troponin peaked at 6.18 on 08/26/19. LDL 175. INR 0.97. White count 12.3, hemoglobin 15.1, hematocrit 45, platelets 272. ECG obtained 08/27/19 reveals sinus rhythm, rate 67 with new anterolateral T- wave inversion. Echocardiogram pending. ASSESSMENT AND PLAN: 1. Non-ST elevation myocardial infarction. The patient had sudden onset complaint of chest pain described as an ache radiating into her her neck with associated shortness of breath and diaphoresis. Has not had recurrent symptoms since administration of nitroglycerin in the emergency department, 08/26/19. The patient now has new anterolateral T-wave inversion consistent with recent infarct. Troponin peaked on 08/26/19 at 6.18. Recommend continuing IV heparin therapy, aspirin therapy. We will initiate pravastatin 40 mg p.o. q.h.s. In the past, she developed a liver injury on atorvastatin therapy. We would recommend continuing beta-blockade therapy. The patient is to have left heart catheterization. Procedure was reviewed with the patient including risks, benefits, and indication. She is aware that risks include but are not limited to bleeding, infection, vessel damage, risk of contrast use, nephropathy, possibility of requirement of dual antiplatelet therapy, referral for bypass surgery, stroke, heart attack, . The patient is agreeable to proceeding to procedure. She denies any overt contraindications to cardiac catheterization such as history of bleeding events, aspirin allergy, or allergy to contrast dyes. She denies history of stroke. 2. Newly diagnosed coronary artery disease, now on aspirin, statin, and beta- blockade therapy. 3. Dyslipidemia. LDL 175, goal LDL is less than 70. We will initiate pravastatin therapy. We will need to follow liver function tests closely given history of liver injury related to atorvastatin therapy. 4. History of mitral regurgitation, mild in 2017. We will await echocardiogram and reevaluate. 5. Disposition pending course. 6. The patient is full code. Dr. Joseph has personally seen and examined the patient and agrees with the above assessment and plan. SINA GUTIERREZ, SAFETY DEPOSIT CLERK [id number]/[facility] #: [id number] MAE
[2019-08-27] MEDS ORDERED: fentaNYL* 50 MCG/ML 2 ML VIAL (100 MCG VIAL) ONE (12:05)
[2019-08-27] MEDS ORDERED: VERAPAMIL 2.5 MG/ML 2 ML VIAL ** 5 mg/2 ml ONE (12:06)
[2019-08-27] MEDS ORDERED: Heparin(*) 1000 UNIT/ML 10 ML VIAL CATH LAB IV ONE (12:06)
[2019-08-27] MEDS ORDERED: Heparin 2 UNITS/ML IVPREMIX* 2,000 ML IV ONE (12:06)
[2019-08-27] MEDS ORDERED: Midazolam* 1 MG/ML 5 ML VIAL (5 MG) ONE (12:06)
[2019-08-27] MEDS ORDERED: Iohexol 350 (CONTRAST) 200 ML MDV IV ONE ×2 (12:07→13:12)
[2019-08-27] MEDS ORDERED: Lidocaine 1% INJ* 10 MG/ML 30 ML SDV ONE (12:07)
[2019-08-27] MEDS ORDERED: nitroGLYCERIN DRIP* 25,000 MCG/250 ML BTL ONE (12:07)
[2019-08-27] MEDS ORDERED: Furosemide IV* 10 MG/ML 2 ML VIAL (20 MG) IV ONE (14:31)
[2019-08-27] MEDS ORDERED: Acetaminophen TAB* 325 MG PO PRN (15:52)
--- NOTE | 2019-08-27 16:47 | PN ---
Subjective Date of Service: 08/27/19 Interval History: pt is seen post cath. Denies CP, but needed to be placed on 02 during cath. Objective Active Medications: Acetaminophen (Tylenol Tab*) 650 mg PO Q4H PRN PRN Reason: FEVER/PAIN Last Admin: 08/27/19 16:03 Dose: 650 mg Ascorbic Acid (Vitamin C Tab*) 500 mg PO DAILY [facility] Last Admin: 08/27/19 09:30 Dose: 500 mg Aspirin (Aspirin 81 Mg Chew Tab*) 81 mg PO DAILY [facility] Last Admin: 08/27/19 09:31 Dose: 81 mg Calcium Carbonate (Calcium Carbonate Tab*) 1,250 mg PO DAILY [facility] Last Admin: 08/27/19 09:30 Dose: 1,250 mg Cholecalciferol (Vitamin D Tab*) 1,000 units PO DAILY [facility] Last Admin: 08/27/19 09:30 Dose: 1,000 units Citalopram Hydrobromide (Celexa Tab*) 10 mg PO DAILY [facility] Last Admin: 08/27/19 09:30 Dose: 10 mg Clopidogrel Bisulfate (Plavix Tab*) 75 mg PO DAILY [facility] Last Admin: 08/27/19 09:30 Dose: 75 mg Heparin Sodium (Porcine) (Heparin Vial(*)) 0 units IV .PER PROTOCOL [facility] Last Admin: 08/26/19 22:15 Dose: 4,000 units Lisinopril (Prinivil Tab*) 5 mg PO DAILY [facility] Metoprolol Tartrate (Lopressor Tab*) 12.5 mg PO Q12HR [facility] Last Admin: 08/27/19 09:31 Dose: 12.5 mg Non-Formulary Medication (Selenium [Selenium]) 200 mcg PO DAILY [facility] Last Admin: 08/27/19 10:17 Dose: Not Given Pravastatin Sodium (Pravachol (Nf)) 40 mg PO DAILY@2200 [facility]; Protocol Vitamin B Complex/Vitamin E (B Complex-50*) 1 tab PO DAILY [facility] Last Admin: 08/27/19 09:31 Dose: 1 tab Vital Signs - 8 hr 08/27/19 08/27/19 08/27/19 11:35 12:05 13:43 Temperature 97.2 F Pulse Rate 68 70 Respiratory 16 16 21 Rate Blood Pressure 127/85 (mmHg) O2 Sat by Pulse 96 92 Oximetry 08/27/19 08/27/19 08/27/19 13:46 14:00 14:02 Temperature Pulse Rate 67 72 71 Respiratory 18 23 15 Rate Blood Pressure 114/69 138/92 (mmHg) O2 Sat by Pulse 92 93 92 Oximetry 08/27/19 08/27/19 08/27/19 14:17 14:25 14:37 Temperature Pulse Rate 69 75 Respiratory 23 20 Rate Blood Pressure 122/78 142/81 (mmHg) O2 Sat by Pulse 94 92 Oximetry 08/27/19 08/27/19 08/27/19 14:47 15:00 15:02 Temperature Pulse Rate 68 70 74 Respiratory 21 20 19 Rate Blood Pressure 141/82 148/82 (mmHg) O2 Sat by Pulse 89 91 90 Oximetry 08/27/19 08/27/19 08/27/19 15:17 15:44 15:59 Temperature Pulse Rate 79 72 Respiratory 17 Rate Blood Pressure 120/59 136/58 122/62 (mmHg) O2 Sat by Pulse 91 90 Oximetry 08/27/19 08/27/19 08/27/19 16:00 16:14 16:25 Temperature 98.2 F 98.4 F Pulse Rate 69 74 74 Respiratory Rate Blood Pressure 122/69 132/76 132/76 (mmHg) O2 Sat by Pulse 95 92 92 Oximetry 08/27/19 16:34 Temperature Pulse Rate 68 Respiratory Rate Blood Pressure 122/69 (mmHg) O2 Sat by Pulse 93 Oximetry Oxygen Devices in Use Now: Nasal Cannula Appearance: 73 yo F in nAD, AAOx3 Eyes: No Scleral Icterus, PERRLA Ears/Nose/Mouth/Throat: NL Teeth, Lips, Gums, Mucous Membranes Moist Neck: NL Appearance and Movements; NL JVP, Trachea Midline Respiratory: Symmetrical Chest Expansion and Respiratory Effort, - - crackles at b/l bases Cardiovascular: NL Sounds; No Murmurs; No JVD, RRR Abdominal: NL Sounds; No Tenderness; No Distention Lymphatic: No Cervical Adenopathy Extremities: No Edema, No Clubbing, Cyanosis Skin: No Rash or Ulcers, No Nodules or Sclerosis Neurological: Alert and Oriented x 3, NL Muscle Strength and Tone Result Diagrams: 08/27/19 04:10 08/27/19 04:10 Additional Lab and Data: Lab Results 08/26/19 08/26/19 08/26/19 Range/Units 20:40 20:40 20:40 WBC 8.3 (3.5-10.8) 10^3/uL RBC 5.21 H (3.70-4.87) 10^6 /uL Hgb 16.0 (12.0-16.0) g/dL Hct 46 (35-47) % MCV 89 (80-97) fL MCH 31 (27-31) pg MCHC 35 (31-36) g/dL RDW 14 (10-15) % Plt Count 291 (150-450) 10^3/uL MPV 7.4 (7.4-10.4) fL Neut % (Auto) 68.4 % Lymph % (Auto) 22.2 % Gordon % (Auto) 6.3 % Eos % (Auto) 2.3 % Baso % (Auto) 0.8 % Absolute Neuts (auto) 5.7 (1.5-7.7) 10^3/ul Absolute Lymphs (auto) 1.8 (1.0-4.8) 10^3/ul Absolute Monos (auto) 0.5 (0-0.8) 10^3/ul Absolute Eos (auto) 0.2 (0-0.6) 10^3/ul Absolute Basos (auto) 0.1 (0-0.2) 10^3/ul Absolute Nucleated RBC 0.0 10^3/ul Nucleated RBC % 0.0 INR (Anticoag Therapy) 0.97 (0.82-1.09) Sodium 137 (135-145) mmol/L Potassium Pending Chloride 103 (101-111) mmol/L Carbon Dioxide 24 (22-32) mmol/L Anion Gap Pending BUN 18 (6-24) mg/dL Creatinine 0.70 (0.51-0.95) mg/dL Est GFR ( Amer) 99.5 (>60) Est GFR (Non-Af Amer) 82.3 (>60) BUN/Creatinine Ratio 25.7 H (8-20) Glucose 117 H (70-100) mg/dL Calcium 9.4 (8.6-10.3) mg/dL Total Bilirubin 0.40 (0.2-1.0) mg/dL AST Pending ALT 19 (7-52) U/L Alkaline Phosphatase 62 (34-104) U/L Troponin I 0.81 H* (<0.04) ng/mL Total Protein 6.5 (6.4-8.9) g/dL Albumin 4.0 (3.2-5.2) g/dL Globulin 2.5 (2-4) g/dL Albumin/Globulin Ratio 1.6 (1-3) Assess/Plan/Problems-Billing Assessment: 73 yo F with h/o dyslipidemia presented with NSTEMI - Patient Problems (1) NSTEMI (non-ST elevated myocardial infarction) Comment: As per d/w both the interventional and noninterventional conservation engineer pt likely has Takotsubo syndrome. She had been under significant stress lately and on the day of admission she forgot her glasses on a way to give a presentation to a group of people and had to "run back" to get them. Her cath showed approx 35% stenosis. EF is down to 45% with apical hypokinesis noted on echo. Pt was counseled about the need of tx for her condition but also to try to lower her stress level Cont lopressor, ASA, start Lisinopril and Pravachol (2) Dyslipidemia Comment: had an adverse reaction to generic Lipitor with elevation of LFT's. Started on Pravachol, need to f/u LFT's as outpatient (3) Acute systolic CHF (congestive heart failure) Comment: tx with Lasix 20 mg IV today. cont daily weights (4) DVT prophylaxis Comment: HSQ Status and Disposition: inpatient
--- NOTE | 2019-08-27 17:29 | CATH ---
CC: Dr. Sebastian Joseph, [facility]; Dr. Yelena Blunt, [facility] * CARDIAC CATHETERIZATION REPORT: DATE OF PROCEDURE: 08/27/19 INDICATIONS FOR PROCEDURE: Asked by Dr. Joseph to perform cardiac catheterization in light of the patient's presentation with elevated cardiac enzymes and apical severe left ventricular systolic dysfunction raising the question of presence of significant coronary artery disease as a possible cause. PROCEDURE: Coronary arteriography, left heart catheterization. CONSENT: The patient was interviewed and examined on the floor of the hospital , where the risks and benefits were explained. She understood them and wished to proceed. APPROACH UTILIZED: The right radial artery was assessed under ultrasound and found to be acceptable for an approach, and as such, this was the approach taken. EQUIPMENT UTILIZED: 1. Right radial artery sheath: A 6-[place]ran Glidesheath slender. 2. Diagnostic coronary catheter - a 5-[place] TIG4 curved catheter. 3. The diagnostic guidewire was a 260 cm length Brizuela curved guidewire. 4. The left heart catheterization catheter was a 5-[place] PIG short radial catheter. 5. The closure device utilized was a regular sized Vasc Band by [employer]. LABORATORY RESULTS PRE-CARDIAC CATHETERIZATION: Hemoglobin and hematocrit of 15.1 and 45. White count 12,300, platelet count 272,000. BUN and creatinine of 13 and 0.61. Sodium 139, potassium 3.7, chloride 108, bicarb 25. Last troponin was 4.42. MEDICATIONS GIVEN DURING THE CARDIAC CATHETERIZATION: 1. A radial artery cocktail including 300 mcg of nitroglycerin and 3 mg of verapamil was given. Of note, the patient was on a heparin drip, and as such, the heparin was not put in the cocktail. 2. 1% lidocaine was utilized for local anesthesia. 3. Versed 1 mg was given. DESCRIPTION OF PROCEDURE: The patient was brought to the cardiovascular laboratory and a formal time-out was performed. The right radial artery area was prepped and draped in sterile fashion, and under ultrasound guidance, the right radial artery was cannulated and sheath was placed. Coronary arteriography was performed. Following this, the TIG4 catheter was exchanged for the PIG short radial catheter. Central aortic pressure was recorded. The catheter was then passed across the aortic valve into the left ventricle where left ventricular pressure was recorded. Pullback was then performed. Left ventriculography was not performed as the patient already had an echocardiogram assessing overall LV systolic function. The LVEDP was also significantly elevated. Following this, a Vasc Band was placed and the reverse Barbeau was a B. The total contrast used was 60 cc of Omnipaque dye. The radiation exposure included 5.6 minutes of fluoro time. The air kerma radiation was 927 mGy. The DAP radiation was 5100 microgray per meter squared. RESULTS: HEMODYNAMIC DATA: Left heart catheterization - central aortic pressure recorded at 143/84 with a mean of 110, left ventricular pressure 140 over left ventricular end- diastolic pressure of 32. CORONARY ARTERIOGRAPHY: A. Left coronary artery: 1. Left main - widely patent with no significant obstruction. 2. Left anterior descending artery. The ostium of the left anterior descending artery had a 25% to 30% narrowing seen. There was a caliber change in the mid portion of the LAD with a segment of disease approximately 35% narrowing. The LAD continued toward the apical region, but not onto the distal inferior wall or inferior apical region. The diagonal branches showed no significant disease. 3. Circumflex artery - a nondominant vessel supplying a thin first obtuse marginal branch with a moderate size second and third obtuse marginal branch and a small low- lying posterior left ventricular branch. There was no significant obstruction seen to these vessels. Of note, in general, the distal vessels appear to have a somewhat corkscrew appearance to them raising question of possible left ventricular hypertrophy. B. Right coronary artery - a dominant vessel supplying multiple acute marginal branches with a posterior descending artery followed by a thin first and second posterior left ventricular branch and a slightly larger third posterior left ventricular branch. Of note, the PDA extended across the whole inferior wall to the apical region. There were mild luminal irregularities noted with a proximal narrowing of 30% to 35%, followed by 25% mid segment narrowing. A distal mild narrowing of 20% was also seen. Of note, there was a 30% ostial narrowing of the right coronary artery. OVERALL ASSESSMENT: No significant coronary artery disease to account for the significant left ventricular systolic dysfunction described on echo with diffuse apical anterolateral, apical inferior hypokinesis. Consideration for other possible causes such as takotsubo syndrome may need to be considered. These results were discussed with Dr. Joseph, the patient's primary hospice superintendent involved with the case in addition to Dr. James, the hospitalist involved with the case. I did mention increased left ventricular end-diastolic pressure and suggest that intravenous Lasix be appropriate given her presentation and chest x-ray that reported vascular congestion. The patient is on a beta-divine and consideration for starting an KALI inhibitor would be appropriate as well. I will leave that up to Dr. Joseph and Dr. James to consider. [id number]/[facility] #: [id number] MTDD
[2019-08-27] MEDS: Lisinopril TAB* 5 MG PO SCH (17:32)
[2019-08-27] MEDS ORDERED: traMADol TAB* 50 MG PO PRN (18:20)
[2019-08-27] MEDS: Heparin VIAL(*) 5000 UNITS/ML VIAL (FIVE THOUSAND) SUBCUT SCH (20:35)
[2019-08-27] MEDS: CMCS - Pravastatin (NF) 20 MG TAB PO SCH (23:06)
[2019-08-28] MEDS: Heparin VIAL(*) 5000 UNITS/ML VIAL (FIVE THOUSAND) SUBCUT SCH ×3 (05:17→21:12)
[2019-08-28 05:18] LABS: Calcium 8.5 mg/dL (8.6-10.3); EGFR African American 85.3 (>60); EGFR Non-African American 70.5 (>60); Potassium 3.6 mmol/L (3.5-5.0)
[2019-08-28] MEDS: Lisinopril TAB* 5 MG PO SCH (08:15)
[2019-08-28] MEDS: Cholecalciferol TAB* 1000 UNITS PO SCH (08:15)
[2019-08-28] MEDS: Clopidogrel TAB* 75 MG PO SCH (08:16)
[2019-08-28] MEDS: Citalopram TAB* 10 MG PO SCH (08:16)
[2019-08-28] MEDS: Metoprolol Tartrate TAB* 25 MG PO SCH (08:17)
[2019-08-28] MEDS: Aspirin 81 mg CHEW TAB* 81 MG TAB.CHEW PO SCH (08:18)
[2019-08-28] MEDS: Ascorbic Acid TAB* 500 MG PO SCH (08:19)
[2019-08-28] MEDS: Calcium Carbonate TAB* 1250 MG (CALCIUM 500 MG) PO SCH (08:19)
[2019-08-28] MEDS: SELENIUM 200 MCG PO SCH (08:23)
[2019-08-28] MEDS: Vitamin B Complex TAB PO SCH (08:26)
[2019-08-28] MEDS ORDERED: Furosemide TAB* 20 MG PO SCH (09:00)
--- NOTE | 2019-08-28 11:01 | PN ---
<ShamikasheritaAngelica - Last Filed: 08/28/19 10:55> Subjective Date of Service: 08/28/19 - NSTEMI, ? Takosubo cardiomyopathy Interval History: No events last night, patient offers no complaints. Denies recurrent chest pain , denies shortness of breath, palpitations, sensation of heart racing or right radial access site pain. Per patient she is still wearing O2 because Sp02 dropped while asleep Medications Active Medications: Acetaminophen (Tylenol Tab*) 650 mg PO Q4H PRN PRN Reason: FEVER/PAIN Last Admin: 08/27/19 16:03 Dose: 650 mg Ascorbic Acid (Vitamin C Tab*) 500 mg PO DAILY [facility] Last Admin: 08/28/19 08:19 Dose: 500 mg Aspirin (Aspirin 81 Mg Chew Tab*) 81 mg PO DAILY [facility] Last Admin: 08/28/19 08:18 Dose: 81 mg Calcium Carbonate (Calcium Carbonate Tab*) 1,250 mg PO DAILY [facility] Last Admin: 08/28/19 08:19 Dose: 1,250 mg Cholecalciferol (Vitamin D Tab*) 1,000 units PO DAILY [facility] Last Admin: 08/28/19 08:15 Dose: 1,000 units Citalopram Hydrobromide (Celexa Tab*) 10 mg PO DAILY [facility] Last Admin: 08/28/19 08:16 Dose: 10 mg Clopidogrel Bisulfate (Plavix Tab*) 75 mg PO DAILY [facility] Last Admin: 08/28/19 08:16 Dose: 75 mg Furosemide (Lasix Tab*) 20 mg PO DAILY [facility] Heparin Sodium (Porcine) (Heparin Vial(*)) 5,000 units SUBCUT Q8HR [facility] Last Admin: 08/28/19 05:17 Dose: 5,000 units Lisinopril (Prinivil Tab*) 5 mg PO DAILY [facility] Last Admin: 08/28/19 08:15 Dose: 5 mg Metoprolol Succinate (Toprol Xl Tab*) 12.5 mg PO DAILY [facility] Non-Formulary Medication (Selenium [Selenium]) 200 mcg PO DAILY [facility] Last Admin: 08/28/19 08:23 Dose: Not Given Pravastatin Sodium (Pravachol (Nf)) 40 mg PO DAILY@2200 ROBB; Protocol Last Admin: 08/27/19 23:06 Dose: 40 mg Tramadol HCl (Ultram*) 50 mg PO Q8H PRN PRN Reason: PAIN - MODERATE Last Admin: 08/27/19 19:36 Dose: 50 mg Vitamin B Complex/Vitamin E (B Complex-50*) 1 tab PO DAILY ROBB Last Admin: 08/28/19 08:26 Dose: 1 tab Objective Vital Signs: Temp Pulse Resp BP Pulse Ox 98.3 F 61 16 106/51 95 08/28/19 07:37 08/28/19 07:37 08/28/19 08:00 08/28/19 07:37 08/28/19 08:40 Oxygen Devices in Use Now: Nasal Cannula Appearance: lying in bed with daughter at bedside. NAD, A+Ox3 Ears/Nose/Mouth/Throat: NL Teeth, Lips, Gums, Clear Oropharnyx, Mucous Membranes Moist Neck: NL Appearance and Movements; NL JVP, Trachea Midline Respiratory: - - + inspiratory crackles noted in left upper and lower lobe. Cardiovascular: NL Sounds; No Murmurs; No JVD, RRR, No Edema Abdominal: NL Sounds; No Tenderness; No Distention Extremities: No Edema, - - right radial access site examined. No hematoma. strong right radial pulse, cap refill < 3 seconds. non tender to palpation. Neurological: Alert and Oriented x 3 Lines/Tubes/Other Access: Clean, Dry and Intact Peripheral IV Laboratory Results: 08/27/19 04:10 08/28/19 04:43 INR (Anticoag Therapy) 0.97 (0.82-1.09) 08/26/19 20:40 APTT 55.9 seconds (26.0-38.0) H 08/27/19 10:03 Total Bilirubin 0.40 mg/dL (0.2-1.0) 08/26/19 20:40 AST 20 U/L (13-39) 08/26/19 20:40 ALT 19 U/L (7-52) 08/26/19 20:40 Alkaline Phosphatase 62 U/L (34-104) 08/26/19 20:40 B-Natriuretic Peptide 123 pg/mL (<=100) H 08/27/19 04:10 Total Protein 6.5 g/dL (6.4-8.9) 08/26/19 20:40 Albumin 4.0 g/dL (3.2-5.2) 08/26/19 20:40 Globulin 2.5 g/dL (2-4) 08/26/19 20:40 Albumin/Globulin Ratio 1.6 (1-3) 08/26/19 20:40 Triglycerides 210 mg/dL 08/27/19 04:10 Cholesterol 269 mg/dL 08/27/19 04:10 LDL Cholesterol 175 mg/dL 08/27/19 04:10 HDL Cholesterol 52.3 mg/dL 08/27/19 04:10 08/26/19 08/26/19 08/26/19 20:40 21:46 23:30 Troponin I 0.81 H* 2.78 H* 6.18 H* 08/27/19 02:24 Troponin I 4.42 H* Laboratory Results - last 24 hr 08/26/19 08/27/19 08/27/19 20:40 04:10 04:10 POC Activ Clotting Time Sodium Potassium Chloride Carbon Dioxide Anion Gap BUN Creatinine Est GFR ( Amer) Est GFR (Non-Af Amer) BUN/Creatinine Ratio Glucose Hemoglobin A1c 5.6 Calcium B-Natriuretic Peptide 123 H Blood Type A Positive Antibody Screen Negative 08/27/19 08/28/19 13:07 04:43 POC Activ Clotting Time 159 Sodium 139 Potassium 3.6 Chloride 106 Carbon Dioxide 30 Anion Gap 3 BUN 12 Creatinine 0.80 Est GFR ( Amer) 85.3 Est GFR (Non-Af Amer) 70.5 BUN/Creatinine Ratio 15.0 Glucose 100 Hemoglobin A1c Calcium 8.5 L B-Natriuretic Peptide Blood Type Antibody Screen Diagnostic Imaging: *[facility]* [place] [address] Fax #: [phone] Transthoracic Echocardiogram Patient: Isabela Dewitt V : 1945 Study Date: 08/27/2019 Age: 73 Gender: F HR: 66 bpm Height: 68 in /172.7 cm BSA: 1.97 m^2 Weight: 182.6 lb /83 kg BMI: 27.8 kg/m^2 *Social Work Therapist: * Lisa Rojas [facility] *Referring Physician: * Dar Turner *Reading Physician: * Concha Joseph MD Indications: Chest Pain, unspecified. History: Risk factors: Dyslipidemia. Conclusions Summary: - Left ventricle: Systolic function is mildly reduced. The estimated ejection fraction is 45-50%. Hypokinesis of the mid-apicalanteroseptal, anterolateral, and inferoseptal myocardium. Hypokinesis of the apicalanterior and inferior myocardium. - Mitral valve: There is mild regurgitation, with multiple jets. - Ascending aorta: The ascending aorta is mildly dilated. - No previous echocardiogram available. Study data: Transthoracic echocardiogram. Procedure: Transthoracic echocardiography was performed. Image quality was fair. Complete 2D, spectral Doppler, and color flow Doppler. Location: Bedside. Patient status: Inpatient. Patient room number: 443-02. This report is only to be considered final once signed by the Provider(s) as displayed in the "<Electronically Signed by >" field (s). Absence of a signature indicates the report is in a draft status and still needs to be finalized. In the event this document was created by someone other than the signing Provider, the individual initiating the document will be listed in the "Entered by:" or "Dictated by:" sparks. Cardiac Catheterization Report ISABELA DEWITT V [id number] 08/27/19 DESCRIPTION OF PROCEDURE: The patient was brought to the cardiovascular laboratory and a formal time-out was performed. The right radial artery area was prepped and draped in sterile fashion, and under ultrasound guidance, the right radial artery was cannulated and sheath was placed. Coronary arteriography was performed. Following this, the TIG4 catheter was exchanged for the PIG short radial catheter. Central aortic pressure was recorded. The catheter was then passed across the aortic valve into the left ventricle where left ventricular pressure was recorded. Pullback was then performed. Left ventriculography was not performed as the patient already had an echocardiogram assessing overall LV systolic function. The LVEDP was also significantly elevated. Following this, a Vasc Band was placed and the reverse Barbeau was a B. The total contrast used was 60 cc of Omnipaque dye. The radiation exposure included 5.6 minutes of fluoro time. The air kerma radiation was 927 mGy. The DAP radiation was 5100 microgray per meter squared. RESULTS: HEMODYNAMIC DATA: Left heart catheterization - central aortic pressure recorded at 143/84 with a mean of 110, left ventricular pressure 140 over left ventricular end- diastolic pressure of 32. CORONARY ARTERIOGRAPHY: A. Left coronary artery: 1. Left main - widely patent with no significant obstruction. 2. Left anterior descending artery. The ostium of the left anterior descending artery had a 25% to 30% narrowing seen. There was a caliber change in the mid portion of the LAD with a segment of disease approximately 35% narrowing. The LAD continued toward the apical region, but not onto the distal inferior wall or inferior apical region. The diagonal branches showed no significant disease. 3. Circumflex artery - a nondominant vessel supplying a thin first obtuse marginal branch with a moderate size second and third obtuse marginal branch and a small low- lying posterior left ventricular branch. There was no significant obstruction seen to these vessels. Of note, in general , the distal vessels appear to have a somewhat corkscrew appearance to them raising question of possible left ventricular hypertrophy. B. Right coronary artery - a dominant vessel supplying multiple acute marginal branches with a posterior descending artery followed by a thin first and second posterior left ventricular branch and a slightly larger third posterior left ventricular branch. Of note, the PDA extended across the whole inferior wall to the apical region. There were mild luminal irregularities noted with a proximal narrowing of 30% to 35%, followed by 25% mid segment narrowing. A distal mild narrowing of 20% was also seen. Of note, there was a 30% ostial narrowing of the right coronary artery. OVERALL ASSESSMENT: No significant coronary artery disease to account for the significant left ventricular systolic dysfunction described on echo with diffuse apical anterolateral, apical inferior hypokinesis. Consideration for other possible causes such as takotsubo syndrome may need to be considered. These results were discussed with Dr. Joseph, the patient's primary ssis etl developer involved with the case in addition to Dr. James, the hospitalist involved with the case. I did mention increased left ventricular end-diastolic pressure and suggest that intravenous Lasix be appropriate given her presentation and chest x-ray that reported vascular congestion. The patient is on a beta- divine and consideration for starting an KALI inhibitor would be appropriate as well. I will leave that up to Dr. Joseph and Dr. James to consider. [id number]/[facility] #: [id number] <Electronically signed by Eder Richardson MD> 08/28/19 0833 Eder Richardson MD This report is only to be considered final once signed by the Provider(s) as displayed in the "<Electronically Signed by >" field (s). Absence of a signature indicates the report is in a draft status and still needs to be finalized. In the event this document was created by someone other than the signing Provider, the individual initiating the document will be listed in the "Entered by:" or "Dictated by:" sparks. 2 of 3 EKG Data: 08/27/2019; Sinus rhythm rate 67 with new anterolateral TW depression Telemetry reviewed; Sinus rate 60's rare PVC, no VT Assessment/Plan #1 NSTEMI; Troponin peaked on 08/26/2019 at 6.1 with new anterolateral TW depression with c/o chest pain. [facility] per report 08/27/2019 no obstructive CAD. Etiology possibly due to Takotsubo cardiomyopathy given + diffuse apical, anterolateral, apical interior hypokinesis. She is on ASA 81/day in combination with Plavix 75/day given NSTEMI we will likely continue DAPT x6 months then stop Plavix but I will confirm with Dr. Cast. Will d/c Lopressor and RX Toprol 12.5mg/day and continue Linisopril 5mg/day. Right radial access site is intact, no hematoma. #2 Presumed Takotsubo Cardiomyopathy; LVEF 45-50%. + inspiratory rales noted. Will start Lasix 20mg/day. Start Toprol 12.5mg/day. continue ACEI #3 h/o HLD; Goal LDL < 70 on Pravastatin 40mg/day. Will need repeat LFT in 6 weeks time given h/o liver injury on Atorvastatin therapy. #4 Probably sleep apnea. Patient had periods of deoxygenation while asleep would recommend outpatient sleep study #5 Disposition pending course, patient would benefit from one more day of observation given titration of medications. Will d/w Dr. Cast duration of DAPT. Attending: Sean Cast <Sean Cast - Last Filed: 08/28/19 13:36> Medications Active Medications: Acetaminophen (Tylenol Tab*) 650 mg PO Q4H PRN PRN Reason: FEVER/PAIN Last Admin: 08/27/19 16:03 Dose: 650 mg Ascorbic Acid (Vitamin C Tab*) 500 mg PO DAILY [facility] Last Admin: 08/28/19 08:19 Dose: 500 mg Aspirin (Aspirin 81 Mg Chew Tab*) 81 mg PO DAILY [facility] Last Admin: 08/28/19 08:18 Dose: 81 mg Calcium Carbonate (Calcium Carbonate Tab*) 1,250 mg PO DAILY [facility] Last Admin: 08/28/19 08:19 Dose: 1,250 mg Cholecalciferol (Vitamin D Tab*) 1,000 units PO DAILY [facility] Last Admin: 08/28/19 08:15 Dose: 1,000 units Citalopram Hydrobromide (Celexa Tab*) 10 mg PO DAILY [facility] Last Admin: 08/28/19 08:16 Dose: 10 mg Clopidogrel Bisulfate (Plavix Tab*) 75 mg PO DAILY [facility] Last Admin: 08/28/19 08:16 Dose: 75 mg Furosemide (Lasix Tab*) 20 mg PO QAM [facility] Last Admin: 08/28/19 11:23 Dose: 20 mg Heparin Sodium (Porcine) (Heparin Vial(*)) 5,000 units SUBCUT Q8HR [facility] Last Admin: 08/28/19 13:04 Dose: 5,000 units Lisinopril (Prinivil Tab*) 5 mg PO DAILY [facility] Last Admin: 08/28/19 08:15 Dose: 5 mg Metoprolol Succinate (Toprol Xl Tab*) 12.5 mg PO DAILY [facility] Non-Formulary Medication (Selenium [Selenium]) 200 mcg PO DAILY [facility] Last Admin: 08/28/19 08:23 Dose: Not Given Pravastatin Sodium (Pravachol (Nf)) 40 mg PO DAILY@2200 ROBB; Protocol Last Admin: 08/27/19 23:06 Dose: 40 mg Tramadol HCl (Ultram*) 50 mg PO Q8H PRN PRN Reason: PAIN - MODERATE Last Admin: 08/27/19 19:36 Dose: 50 mg Vitamin B Complex/Vitamin E (B Complex-50*) 1 tab PO DAILY [facility] Last Admin: 08/28/19 08:26 Dose: 1 tab Objective Vital Signs: Temp Pulse Resp BP Pulse Ox 97.8 F 63 16 100/55 94 08/28/19 11:14 08/28/19 11:14 08/28/19 11:14 08/28/19 11:14 08/28/19 11:14 Laboratory Results: 08/27/19 04:10 08/28/19 04:43 INR (Anticoag Therapy) 0.97 (0.82-1.09) 08/26/19 20:40 APTT 55.9 seconds (26.0-38.0) H 08/27/19 10:03 Total Bilirubin 0.40 mg/dL (0.2-1.0) 08/26/19 20:40 AST 20 U/L (13-39) 08/26/19 20:40 ALT 19 U/L (7-52) 08/26/19 20:40 Alkaline Phosphatase 62 U/L (34-104) 08/26/19 20:40 B-Natriuretic Peptide 123 pg/mL (<=100) H 08/27/19 04:10 Total Protein 6.5 g/dL (6.4-8.9) 08/26/19 20:40 Albumin 4.0 g/dL (3.2-5.2) 08/26/19 20:40 Globulin 2.5 g/dL (2-4) 08/26/19 20:40 Albumin/Globulin Ratio 1.6 (1-3) 08/26/19 20:40 Triglycerides 210 mg/dL 08/27/19 04:10 Cholesterol 269 mg/dL 08/27/19 04:10 LDL Cholesterol 175 mg/dL 08/27/19 04:10 HDL Cholesterol 52.3 mg/dL 08/27/19 04:10 08/26/19 08/26/19 08/26/19 20:40 21:46 23:30 Troponin I 0.81 H* 2.78 H* 6.18 H* 08/27/19 02:24 Troponin I 4.42 H* Assessment/Plan Patient examined/reviewed with Ms. Mcclendon. Reviewed presumed diagnosis and recommended lifestyle changes and medication regimenl Given the presence of atherosclerotic disease and troponin elevation, consider the possibility of transient thrombus (although less likely than stress cardiomyopathy). Therefore, I concur with rx with DAPT for now as above; the duration of therapy can be reassessed as an outpatient depending on her course. For continued observation on medication adjustments, Sean Cast MD 1;34 pm. Counseling and/or Coordination of Care Minutes: 35 + minutes
[2019-08-28] MEDS: Furosemide TAB* 20 MG PO SCH (11:23)
--- NOTE | 2019-08-28 15:06 | PN ---
Subjective Date of Service: 08/28/19 Interval History: Pt feels well. Still on 02, stated that she had 02 at 91% when sleeping. Denies CP, or SOB Objective Active Medications: Acetaminophen (Tylenol Tab*) 650 mg PO Q4H PRN PRN Reason: FEVER/PAIN Last Admin: 08/27/19 16:03 Dose: 650 mg Ascorbic Acid (Vitamin C Tab*) 500 mg PO DAILY [facility] Last Admin: 08/28/19 08:19 Dose: 500 mg Aspirin (Aspirin 81 Mg Chew Tab*) 81 mg PO DAILY [facility] Last Admin: 08/28/19 08:18 Dose: 81 mg Calcium Carbonate (Calcium Carbonate Tab*) 1,250 mg PO DAILY [facility] Last Admin: 08/28/19 08:19 Dose: 1,250 mg Cholecalciferol (Vitamin D Tab*) 1,000 units PO DAILY [facility] Last Admin: 08/28/19 08:15 Dose: 1,000 units Citalopram Hydrobromide (Celexa Tab*) 10 mg PO DAILY [facility] Last Admin: 08/28/19 08:16 Dose: 10 mg Clopidogrel Bisulfate (Plavix Tab*) 75 mg PO DAILY [facility] Last Admin: 08/28/19 08:16 Dose: 75 mg Furosemide (Lasix Tab*) 20 mg PO QAM [facility] Last Admin: 08/28/19 11:23 Dose: 20 mg Heparin Sodium (Porcine) (Heparin Vial(*)) 5,000 units SUBCUT Q8HR [facility] Last Admin: 08/28/19 13:04 Dose: 5,000 units Lisinopril (Prinivil Tab*) 5 mg PO DAILY [facility] Last Admin: 08/28/19 08:15 Dose: 5 mg Metoprolol Succinate (Toprol Xl Tab*) 12.5 mg PO DAILY [facility] Non-Formulary Medication (Selenium [Selenium]) 200 mcg PO DAILY [facility] Last Admin: 08/28/19 08:23 Dose: Not Given Pravastatin Sodium (Pravachol (Nf)) 40 mg PO DAILY@2200 [facility]; Protocol Last Admin: 08/27/19 23:06 Dose: 40 mg Tramadol HCl (Ultram*) 50 mg PO Q8H PRN PRN Reason: PAIN - MODERATE Last Admin: 08/27/19 19:36 Dose: 50 mg Vitamin B Complex/Vitamin E (B Complex-50*) 1 tab PO DAILY [facility] Last Admin: 08/28/19 08:26 Dose: 1 tab Vital Signs - 8 hr 08/28/19 08/28/19 08/28/19 07:37 08:00 08:40 Temperature 98.3 F Pulse Rate 61 Respiratory 16 16 Rate Blood Pressure 106/51 (mmHg) O2 Sat by Pulse 98 95 Oximetry 08/28/19 11:14 Temperature 97.8 F Pulse Rate 63 Respiratory 16 Rate Blood Pressure 100/55 (mmHg) O2 Sat by Pulse 94 Oximetry Oxygen Devices in Use Now: Nasal Cannula Appearance: 73 yo F in NAD, AAOx3 Eyes: No Scleral Icterus, PERRLA Ears/Nose/Mouth/Throat: NL Teeth, Lips, Gums, Mucous Membranes Moist Neck: NL Appearance and Movements; NL JVP, Trachea Midline Respiratory: Symmetrical Chest Expansion and Respiratory Effort, - - crackles at b/l bases Cardiovascular: NL Sounds; No Murmurs; No JVD, RRR Abdominal: NL Sounds; No Tenderness; No Distention, No Hepatosplenomegaly Lymphatic: No Cervical Adenopathy Extremities: No Edema, No Clubbing, Cyanosis Skin: No Rash or Ulcers, No Nodules or Sclerosis Neurological: Alert and Oriented x 3, NL Muscle Strength and Tone Result Diagrams: 08/27/19 04:10 08/28/19 04:43 Additional Lab and Data: Lab Results 08/26/19 08/26/19 08/26/19 Range/Units 20:40 20:40 20:40 WBC 8.3 (3.5-10.8) 10^3/uL RBC 5.21 H (3.70-4.87) 10^6 /uL Hgb 16.0 (12.0-16.0) g/dL Hct 46 (35-47) % MCV 89 (80-97) fL MCH 31 (27-31) pg MCHC 35 (31-36) g/dL RDW 14 (10-15) % Plt Count 291 (150-450) 10^3/uL MPV 7.4 (7.4-10.4) fL Neut % (Auto) 68.4 % Lymph % (Auto) 22.2 % [place] % (Auto) 6.3 % Eos % (Auto) 2.3 % Baso % (Auto) 0.8 % Absolute Neuts (auto) 5.7 (1.5-7.7) 10^3/ul Absolute Lymphs (auto) 1.8 (1.0-4.8) 10^3/ul Absolute Monos (auto) 0.5 (0-0.8) 10^3/ul Absolute Eos (auto) 0.2 (0-0.6) 10^3/ul Absolute Basos (auto) 0.1 (0-0.2) 10^3/ul Absolute Nucleated RBC 0.0 10^3/ul Nucleated RBC % 0.0 INR (Anticoag Therapy) 0.97 (0.82-1.09) Sodium 137 (135-145) mmol/L Potassium Pending Chloride 103 (101-111) mmol/L Carbon Dioxide 24 (22-32) mmol/L Anion Gap Pending BUN 18 (6-24) mg/dL Creatinine 0.70 (0.51-0.95) mg/dL Est GFR ( Amer) 99.5 (>60) Est GFR (Non-Af Amer) 82.3 (>60) BUN/Creatinine Ratio 25.7 H (8-20) Glucose 117 H (70-100) mg/dL Calcium 9.4 (8.6-10.3) mg/dL Total Bilirubin 0.40 (0.2-1.0) mg/dL AST Pending ALT 19 (7-52) U/L Alkaline Phosphatase 62 (34-104) U/L Troponin I 0.81 H* (<0.04) ng/mL Total Protein 6.5 (6.4-8.9) g/dL Albumin 4.0 (3.2-5.2) g/dL Globulin 2.5 (2-4) g/dL Albumin/Globulin Ratio 1.6 (1-3) Assess/Plan/Problems-Billing Assessment: 73 yo F with h/o dyslipidemia presented with NSTEMI - Patient Problems (1) NSTEMI (non-ST elevated myocardial infarction) Comment: As per d/w both the interventional and noninterventional manager helpdesk pt likely has Takotsubo syndrome. She had been under significant stress lately and on the day of admission she forgot her glasses on a way to give a presentation to a group of people and had to "run back" to get them. Her cath showed approx 35% stenosis. EF is down to 45% with apical hypokinesis noted on echo. Pt was counseled about the need of tx for her condition but also to try to lower her stress level Cont lopressor, ASA, Palvix, Lisinopril and Pravachol (2) Dyslipidemia Comment: had an adverse reaction to generic Lipitor with elevation of LFT's. Started on Pravachol, need to f/u LFT's as outpatient in 6 weeks (3) Acute systolic CHF (congestive heart failure) Comment: Lasix PO started by cardiology. cont daily weights Still in mild CHF today (4) DVT prophylaxis Comment: HSQ Status and Disposition: inpatient
[2019-08-28] MEDS: Potassium Chlor TAB* 10 MEQ TAB.ER PO SCH (16:03)
[2019-08-28] MEDS: CMCS - Pravastatin (NF) 20 MG TAB PO SCH (21:10)
[2019-08-29] MEDS: Heparin VIAL(*) 5000 UNITS/ML VIAL (FIVE THOUSAND) SUBCUT SCH (05:07)
[2019-08-29 05:39] LABS: BUN/Creatinine Ratio 16.9 (8-20); Calcium 8.6 mg/dL (8.6-10.3); EGFR African American 97.9 (>60); EGFR Non-African American 80.9 (>60); Potassium 3.8 mmol/L (3.5-5.0)
--- NOTE | 2019-08-29 08:15 | PN ---
Subjective Date of Service: 08/29/19 Interval History: HOSPITALIST PROGRESS NOTE Patient seen and examined at bedside. Care reviewed and d/w Objective Active Medications: Acetaminophen (Tylenol Tab*) 650 mg PO Q4H PRN PRN Reason: FEVER/PAIN Last Admin: 08/27/19 16:03 Dose: 650 mg Ascorbic Acid (Vitamin C Tab*) 500 mg PO DAILY [facility] Last Admin: 08/28/19 08:19 Dose: 500 mg Aspirin (Aspirin 81 Mg Chew Tab*) 81 mg PO DAILY [facility] Last Admin: 08/28/19 08:18 Dose: 81 mg Calcium Carbonate (Calcium Carbonate Tab*) 1,250 mg PO DAILY [facility] Last Admin: 08/28/19 08:19 Dose: 1,250 mg Cholecalciferol (Vitamin D Tab*) 1,000 units PO DAILY [facility] Last Admin: 08/28/19 08:15 Dose: 1,000 units Citalopram Hydrobromide (Celexa Tab*) 10 mg PO DAILY [facility] Last Admin: 08/28/19 08:16 Dose: 10 mg Clopidogrel Bisulfate (Plavix Tab*) 75 mg PO DAILY [facility] Last Admin: 08/28/19 08:16 Dose: 75 mg Furosemide (Lasix Tab*) 20 mg PO QAM [facility] Last Admin: 08/28/19 11:23 Dose: 20 mg Heparin Sodium (Porcine) (Heparin Vial(*)) 5,000 units SUBCUT Q8HR [facility] Last Admin: 08/29/19 05:07 Dose: 5,000 units Lisinopril (Prinivil Tab*) 5 mg PO DAILY [facility] Last Admin: 08/28/19 08:15 Dose: 5 mg Metoprolol Succinate (Toprol Xl Tab*) 12.5 mg PO DAILY [facility] Non-Formulary Medication (Selenium [Selenium]) 200 mcg PO DAILY [facility] Last Admin: 08/28/19 08:23 Dose: Not Given Potassium Chloride (Klor Con Er Tab*) 10 meq PO DAILY [facility] Last Admin: 08/28/19 16:03 Dose: 10 meq Pravastatin Sodium (Pravachol (Nf)) 40 mg PO DAILY@2200 [facility]; Protocol Last Admin: 08/28/19 21:10 Dose: 40 mg Tramadol HCl (Ultram*) 50 mg PO Q8H PRN PRN Reason: PAIN - MODERATE Last Admin: 08/27/19 19:36 Dose: 50 mg Vitamin B Complex/Vitamin E (B Complex-50*) 1 tab PO DAILY [facility] Last Admin: 08/28/19 08:26 Dose: 1 tab Vital Signs - 8 hr 08/29/19 03:27 Temperature 98.3 F Pulse Rate 68 Respiratory 20 Rate Blood Pressure 123/58 (mmHg) O2 Sat by Pulse 98 Oximetry Oxygen Devices in Use Now: Nasal Cannula Result Diagrams: 08/27/19 04:10 08/29/19 05:06 Additional Lab and Data: Lab Results 08/26/19 08/26/19 08/26/19 Range/Units 20:40 20:40 20:40 WBC 8.3 (3.5-10.8) 10^3/uL RBC 5.21 H (3.70-4.87) 10^6 /uL Hgb 16.0 (12.0-16.0) g/dL Hct 46 (35-47) % MCV 89 (80-97) fL MCH 31 (27-31) pg MCHC 35 (31-36) g/dL RDW 14 (10-15) % Plt Count 291 (150-450) 10^3/uL MPV 7.4 (7.4-10.4) fL Neut % (Auto) 68.4 % Lymph % (Auto) 22.2 % [place] % (Auto) 6.3 % Eos % (Auto) 2.3 % Baso % (Auto) 0.8 % Absolute Neuts (auto) 5.7 (1.5-7.7) 10^3/ul Absolute Lymphs (auto) 1.8 (1.0-4.8) 10^3/ul Absolute Monos (auto) 0.5 (0-0.8) 10^3/ul Absolute Eos (auto) 0.2 (0-0.6) 10^3/ul Absolute Basos (auto) 0.1 (0-0.2) 10^3/ul Absolute Nucleated RBC 0.0 10^3/ul Nucleated RBC % 0.0 INR (Anticoag Therapy) 0.97 (0.82-1.09) Sodium 137 (135-145) mmol/L Potassium Pending Chloride 103 (101-111) mmol/L Carbon Dioxide 24 (22-32) mmol/L Anion Gap Pending BUN 18 (6-24) mg/dL Creatinine 0.70 (0.51-0.95) mg/dL Est GFR ( Amer) 99.5 (>60) Est GFR (Non-Af Amer) 82.3 (>60) BUN/Creatinine Ratio 25.7 H (8-20) Glucose 117 H (70-100) mg/dL Calcium 9.4 (8.6-10.3) mg/dL Total Bilirubin 0.40 (0.2-1.0) mg/dL AST Pending ALT 19 (7-52) U/L Alkaline Phosphatase 62 (34-104) U/L Troponin I 0.81 H* (<0.04) ng/mL Total Protein 6.5 (6.4-8.9) g/dL Albumin 4.0 (3.2-5.2) g/dL Globulin 2.5 (2-4) g/dL Albumin/Globulin Ratio 1.6 (1-3) Assess/Plan/Problems-Billing Assessment: 73 yo F with h/o dyslipidemia presented with NSTEMI - Patient Problems (1) Full code status Current Visit: Yes Status: Acute Code(s): Z78.9 - OTHER SPECIFIED HEALTH STATUS SNOMED Code(s): 464916799 (2) Acute systolic CHF (congestive heart failure) Current Visit: Yes Status: Acute Code(s): I50.21 - ACUTE SYSTOLIC ( CONGESTIVE) HEART FAILURE SNOMED Code(s): 235532765 Comment: Lasix PO started by cardiology. cont daily weights Still in mild CHF today (3) DVT prophylaxis Current Visit: Yes Status: Acute Code(s): Z29.9 - ENCOUNTER FOR PROPHYLACTIC MEASURES, UNSPECIFIED SNOMED Code(s): 977037993 Comment: HSQ (4) Dyslipidemia Current Visit: Yes Status: Acute Code(s): E78.5 - HYPERLIPIDEMIA, UNSPECIFIED SNOMED Code(s): 469380044 Comment: had an adverse reaction to generic Lipitor with elevation of LFT's. Started on Pravachol, need to f/u LFT's as outpatient in 6 weeks (5) NSTEMI (non-ST elevated myocardial infarction) Current Visit: Yes Status: Acute Code(s): I21.4 - NON-ST ELEVATION (NSTEMI) MYOCARDIAL INFARCTION SNOMED Code(s): 38585036 Comment: As per d/w both the interventional and noninterventional cleat feeder pt likely has Takotsubo syndrome. She had been under significant stress lately and on the day of admission she forgot her glasses on a way to give a presentation to a group of people and had to "run back" to get them. Her cath showed approx 35% stenosis. EF is down to 45% with apical hypokinesis noted on echo. Pt was counseled about the need of tx for her condition but also to try to lower her stress level Cont lopressor, ASA, Palvix, Lisinopril and Pravachol Status and Disposition: inpatient
[2019-08-29] MEDS ORDERED: Metoprolol Succinate XL TAB* 25 MG PO SCH (09:00)
[2019-08-29] MEDS: Vitamin B Complex TAB PO SCH (09:31)
[2019-08-29] MEDS: Cholecalciferol TAB* 1000 UNITS PO SCH (09:31)
[2019-08-29] MEDS: Furosemide TAB* 20 MG PO SCH (09:31)
[2019-08-29] MEDS: Citalopram TAB* 10 MG PO SCH (09:32)
[2019-08-29] MEDS: Potassium Chlor TAB* 10 MEQ TAB.ER PO SCH (09:33)
[2019-08-29] MEDS: Calcium Carbonate TAB* 1250 MG (CALCIUM 500 MG) PO SCH (09:33)
[2019-08-29] MEDS: Ascorbic Acid TAB* 500 MG PO SCH (09:34)
[2019-08-29] MEDS: Aspirin 81 mg CHEW TAB* 81 MG TAB.CHEW PO SCH (09:35)
[2019-08-29] MEDS: Lisinopril TAB* 5 MG PO SCH (09:36)
[2019-08-29] MEDS: Clopidogrel TAB* 75 MG PO SCH (09:37)
[2019-08-29] MEDS ORDERED: Potassium Chlor TAB* 20 MEQ TAB.ER PO ONE (10:33)
[2019-08-29] MEDS: SELENIUM 200 MCG PO SCH (10:37)
--- NOTE | 2019-08-29 10:40 | PN ---
<HakanAngelica - Last Filed: 08/29/19 10:34> Subjective Date of Service: 08/29/19 - NSTEMI, ? Takotsubo Interval History: No events last night, patient offers no complaints. Denies recurrent chest pain , denies shortness of breath, palpitations, sensation of heart racing or right radial access site pain. She is anxious to go home. Medications Active Medications: Acetaminophen (Tylenol Tab*) 650 mg PO Q4H PRN PRN Reason: FEVER/PAIN Last Admin: 08/27/19 16:03 Dose: 650 mg Ascorbic Acid (Vitamin C Tab*) 500 mg PO DAILY [facility] Last Admin: 08/29/19 09:34 Dose: 500 mg Aspirin (Aspirin 81 Mg Chew Tab*) 81 mg PO DAILY [facility] Last Admin: 08/29/19 09:35 Dose: 81 mg Calcium Carbonate (Calcium Carbonate Tab*) 1,250 mg PO DAILY [facility] Last Admin: 08/29/19 09:33 Dose: 1,250 mg Cholecalciferol (Vitamin D Tab*) 1,000 units PO DAILY [facility] Last Admin: 08/29/19 09:31 Dose: 1,000 units Citalopram Hydrobromide (Celexa Tab*) 10 mg PO DAILY [facility] Last Admin: 08/29/19 09:32 Dose: 10 mg Clopidogrel Bisulfate (Plavix Tab*) 75 mg PO DAILY [facility] Last Admin: 08/29/19 09:37 Dose: 75 mg Furosemide (Lasix Tab*) 10 mg PO QAM [facility] Stop: 08/31/19 11:00 Heparin Sodium (Porcine) (Heparin Vial(*)) 5,000 units SUBCUT Q8HR [facility] Last Admin: 08/29/19 05:07 Dose: 5,000 units Lisinopril (Prinivil Tab*) 5 mg PO DAILY [facility] Last Admin: 08/29/19 09:36 Dose: 5 mg Metoprolol Succinate (Toprol Xl Tab*) 12.5 mg PO DAILY [facility] Last Admin: 08/29/19 09:37 Dose: 12.5 mg Non-Formulary Medication (Selenium [Selenium]) 200 mcg PO DAILY [facility] Last Admin: 08/28/19 08:23 Dose: Not Given Potassium Chloride (Klor Con Er Tab*) 10 meq PO DAILY [facility] Last Admin: 08/29/19 09:33 Dose: 10 meq Pravastatin Sodium (Pravachol (Nf)) 40 mg PO DAILY@2200 [facility]; Protocol Last Admin: 08/28/19 21:10 Dose: 40 mg Tramadol HCl (Ultram*) 50 mg PO Q8H PRN PRN Reason: PAIN - MODERATE Last Admin: 08/27/19 19:36 Dose: 50 mg Vitamin B Complex/Vitamin E (B Complex-50*) 1 tab PO DAILY [facility] Last Admin: 08/29/19 09:31 Dose: 1 tab Objective Vital Signs: Temp Pulse Resp BP Pulse Ox 98.3 F 68 20 123/58 98 08/29/19 03:27 08/29/19 03:27 08/29/19 03:27 08/29/19 03:27 08/29/19 03:27 Oxygen Devices in Use Now: None, Nasal Cannula Appearance: lying in bed with daughter at bedside. NAD, A+Ox3 Ears/Nose/Mouth/Throat: NL Teeth, Lips, Gums, Clear Oropharnyx, Mucous Membranes Moist Neck: NL Appearance and Movements; NL JVP, Trachea Midline Respiratory: Symmetrical Chest Expansion and Respiratory Effort, Clear to Auscultation, - Cardiovascular: NL Sounds; No Murmurs; No JVD, RRR, No Edema Abdominal: NL Sounds; No Tenderness; No Distention Extremities: No Edema, - - right radial access site examined. No hematoma. strong right radial pulse, cap refill < 3 seconds. non tender to palpation. Neurological: Alert and Oriented x 3 Lines/Tubes/Other Access: Clean, Dry and Intact Peripheral IV Laboratory Results: 08/27/19 04:10 08/29/19 05:06 INR (Anticoag Therapy) 0.97 (0.82-1.09) 08/26/19 20:40 APTT 55.9 seconds (26.0-38.0) H 08/27/19 10:03 Total Bilirubin 0.40 mg/dL (0.2-1.0) 08/26/19 20:40 AST 20 U/L (13-39) 08/26/19 20:40 ALT 19 U/L (7-52) 08/26/19 20:40 Alkaline Phosphatase 62 U/L (34-104) 08/26/19 20:40 B-Natriuretic Peptide 123 pg/mL (<=100) H 08/27/19 04:10 Total Protein 6.5 g/dL (6.4-8.9) 08/26/19 20:40 Albumin 4.0 g/dL (3.2-5.2) 08/26/19 20:40 Globulin 2.5 g/dL (2-4) 08/26/19 20:40 Albumin/Globulin Ratio 1.6 (1-3) 08/26/19 20:40 Triglycerides 210 mg/dL 08/27/19 04:10 Cholesterol 269 mg/dL 08/27/19 04:10 LDL Cholesterol 175 mg/dL 08/27/19 04:10 HDL Cholesterol 52.3 mg/dL 08/27/19 04:10 08/26/19 08/26/19 08/26/19 20:40 21:46 23:30 Troponin I 0.81 H* 2.78 H* 6.18 H* 08/27/19 02:24 Troponin I 4.42 H* Laboratory Results - last 24 hr 08/29/19 05:06 Sodium 140 Potassium 3.8 Chloride 107 Carbon Dioxide 29 Anion Gap 4 BUN 12 Creatinine 0.71 Est GFR ( Amer) 97.9 Est GFR (Non-Af Amer) 80.9 BUN/Creatinine Ratio 16.9 Glucose 97 Calcium 8.6 Diagnostic Imaging: *[facility]* [place] [address] Fax #: [phone] Transthoracic Echocardiogram Patient: Isabela Dewitt V : 1945 Study Date: 08/27/2019 Age: 73 Gender: F HR: 66 bpm Height: 68 in /172.7 cm BSA: 1.97 m^2 Weight: 182.6 lb /83 kg BMI: 27.8 kg/m^2 *Lodging Manager: * Lisa Rojas [facility] *Referring Physician: * Dar Turner *Reading Physician: * Concha Joseph MD Indications: Chest Pain, unspecified. History: Risk factors: Dyslipidemia. Conclusions Summary: - Left ventricle: Systolic function is mildly reduced. The estimated ejection fraction is 45-50%. Hypokinesis of the mid-apicalanteroseptal, anterolateral, and inferoseptal myocardium. Hypokinesis of the apicalanterior and inferior myocardium. - Mitral valve: There is mild regurgitation, with multiple jets. - Ascending aorta: The ascending aorta is mildly dilated. - No previous echocardiogram available. Study data: Transthoracic echocardiogram. Procedure: Transthoracic echocardiography was performed. Image quality was fair. Complete 2D, spectral Doppler, and color flow Doppler. Location: Bedside. Patient status: Inpatient. Patient room number: 443-02. This report is only to be considered final once signed by the Provider(s) as displayed in the "<Electronically Signed by >" field (s). Absence of a signature indicates the report is in a draft status and still needs to be finalized. In the event this document was created by someone other than the signing Provider, the individual initiating the document will be listed in the "Entered by:" or "Dictated by:" sparks. Cardiac Catheterization Report ISABELA DEWITT V [id number] 08/27/19 DESCRIPTION OF PROCEDURE: The patient was brought to the cardiovascular laboratory and a formal time-out was performed. The right radial artery area was prepped and draped in sterile fashion, and under ultrasound guidance, the right radial artery was cannulated and sheath was placed. Coronary arteriography was performed. Following this, the TIG4 catheter was exchanged for the PIG short radial catheter. Central aortic pressure was recorded. The catheter was then passed across the aortic valve into the left ventricle where left ventricular pressure was recorded. Pullback was then performed. Left ventriculography was not performed as the patient already had an echocardiogram assessing overall LV systolic function. The LVEDP was also significantly elevated. Following this, a Vasc Band was placed and the reverse Barbeau was a B. The total contrast used was 60 cc of Omnipaque dye. The radiation exposure included 5.6 minutes of fluoro time. The air kerma radiation was 927 mGy. The DAP radiation was 5100 microgray per meter squared. RESULTS: HEMODYNAMIC DATA: Left heart catheterization - central aortic pressure recorded at 143/84 with a mean of 110, left ventricular pressure 140 over left ventricular end- diastolic pressure of 32. CORONARY ARTERIOGRAPHY: A. Left coronary artery: 1. Left main - widely patent with no significant obstruction. 2. Left anterior descending artery. The ostium of the left anterior descending artery had a 25% to 30% narrowing seen. There was a caliber change in the mid portion of the LAD with a segment of disease approximately 35% narrowing. The LAD continued toward the apical region, but not onto the distal inferior wall or inferior apical region. The diagonal branches showed no significant disease. 3. Circumflex artery - a nondominant vessel supplying a thin first obtuse marginal branch with a moderate size second and third obtuse marginal branch and a small low- lying posterior left ventricular branch. There was no significant obstruction seen to these vessels. Of note, in general , the distal vessels appear to have a somewhat corkscrew appearance to them raising question of possible left ventricular hypertrophy. B. Right coronary artery - a dominant vessel supplying multiple acute marginal branches with a posterior descending artery followed by a thin first and second posterior left ventricular branch and a slightly larger third posterior left ventricular branch. Of note, the PDA extended across the whole inferior wall to the apical region. There were mild luminal irregularities noted with a proximal narrowing of 30% to 35%, followed by 25% mid segment narrowing. A distal mild narrowing of 20% was also seen. Of note, there was a 30% ostial narrowing of the right coronary artery. OVERALL ASSESSMENT: No significant coronary artery disease to account for the significant left ventricular systolic dysfunction described on echo with diffuse apical anterolateral, apical inferior hypokinesis. Consideration for other possible causes such as takotsubo syndrome may need to be considered. These results were discussed with Dr. Joseph, the patient's primary assistant media planner involved with the case in addition to Dr. James, the hospitalist involved with the case. I did mention increased left ventricular end-diastolic pressure and suggest that intravenous Lasix be appropriate given her presentation and chest x-ray that reported vascular congestion. The patient is on a beta- divine and consideration for starting an KALI inhibitor would be appropriate as well. I will leave that up to Dr. Joseph and Dr. James to consider. [id number]/[facility] #: [id number] <Electronically signed by Eder Richardson MD> 08/28/19 0833 Eder Richardson MD This report is only to be considered final once signed by the Provider(s) as displayed in the "<Electronically Signed by >" field (s). Absence of a signature indicates the report is in a draft status and still needs to be finalized. In the event this document was created by someone other than the signing Provider, the individual initiating the document will be listed in the "Entered by:" or "Dictated by:" sparks. 2 of 3 EKG Data: 08/27/2019; Sinus rhythm rate 67 with new anterolateral TW depression Telemetry reviewed; Sinus rate 60's rare PVC, no VT Assessment/Plan #1 NSTEMI ;Troponin peaked 08/26 at 6.1 with new anterolateral TW changes and c/ o chest pain. Per cath no obstructive CAD. Will resume ASA 81/day in combination with Plavix 75 mg/day. Duration of DAPT will be determined outpatient. She is to f/u with Dr. Ponce next week. No recurrent symptoms. Now on Pravastatin 40mg PO QHS. will repeat LFT week of 10/06/2019 given h/o liver injury with Atorvastatin. Continue Toprol therapy. LVEF 45-50% will likely need repeat echo in 6-8 weeks time. Order for repeat labs placed through [facility] by our team. no lifting >5 lbs for 5-7days, no driving until Sunday. DO not soak right radial access site, she may shower. Right radial access site is intact, no hematoma, strong pulse, cap refill < 3 seconds. #2 ? Takotsubo CM; LVEF 45-50% with WMA. On Lisinopril and Toprol therapy. Compensated after diuresis. Will continue Lasix 10mg/day until Sunday then stop. Ordered outpatient Chemistry to be done 09/01/2019. #3 h/o HLD; LDL goal < 70 now on Pravastatin. Given h/o liver injury with Atorvastatin will follow LFT closely. #4 h/o HTN; currently normotensive. Continue current meds. Will sign off. case d /w Dr. Cast. Attending: Sean Cast <Sean Cast - Last Filed: 08/29/19 15:00> Objective Vital Signs: Temp Pulse Resp BP Pulse Ox 98.3 F 63 16 123/65 95 08/29/19 11:43 08/29/19 11:43 08/29/19 11:43 08/29/19 11:43 08/29/19 11:43 Laboratory Results: 08/27/19 04:10 08/29/19 05:06 INR (Anticoag Therapy) 0.97 (0.82-1.09) 08/26/19 20:40 APTT 55.9 seconds (26.0-38.0) H 08/27/19 10:03 Total Bilirubin 0.40 mg/dL (0.2-1.0) 08/26/19 20:40 AST 20 U/L (13-39) 08/26/19 20:40 ALT 19 U/L (7-52) 08/26/19 20:40 Alkaline Phosphatase 62 U/L (34-104) 08/26/19 20:40 B-Natriuretic Peptide 123 pg/mL (<=100) H 08/27/19 04:10 Total Protein 6.5 g/dL (6.4-8.9) 08/26/19 20:40 Albumin 4.0 g/dL (3.2-5.2) 08/26/19 20:40 Globulin 2.5 g/dL (2-4) 08/26/19 20:40 Albumin/Globulin Ratio 1.6 (1-3) 08/26/19 20:40 Triglycerides 210 mg/dL 08/27/19 04:10 Cholesterol 269 mg/dL 08/27/19 04:10 LDL Cholesterol 175 mg/dL 08/27/19 04:10 HDL Cholesterol 52.3 mg/dL 08/27/19 04:10 08/26/19 08/26/19 08/26/19 20:40 21:46 23:30 Troponin I 0.81 H* 2.78 H* 6.18 H* 08/27/19 02:24 Troponin I 4.42 H* Assessment/Plan Points of Discussion: patient seen and case reviewed with Ms. Mcclendon. Reviewed diagnosis and treatment plan including suggestions for stress management and lifestyle modification. Agree with plan and need for followup as discussed. MD Segun 08.29.19 3 pm
[2019-08-29 12:44] VITALS: BP 123/65
--- NOTE | 2019-08-29 23:46 | DS ---
DISCHARGE SUMMARY: ADDENDUM: Please note that the patient was also noted to have nocturnal hypoxia , and she will benefit from a sleep study to rule out sleep apnea as outpatient. [id number]/[facility] #: [id number] [facility]
--- NOTE | 2019-08-30 01:09 | DS ---
ADDENDUM NOW INCLUDED ON THIS REPORT CC: Dr. Yelena Blunt; Dr. Ponce * DISCHARGE SUMMARY: DATE OF ADMISSION: 08/27/19 DATE OF DISCHARGE: 08/29/19 PRIMARY CARE PROVIDER: Dr. Yelena Blunt. INTERNET SECURITY SPECIALIST: Dr. Ponce. DISCHARGE DIAGNOSES: 1. Non-ST elevation myocardial infarction. 2. Probable Takotsubo cardiomyopathy. SECONDARY DIAGNOSES: 1. Depression. 2. Irritable bowel syndrome. 3. Hyperlipidemia. 4. Hypertension. MEDICATION LIST: 1. Vitamin C 500 mg p.o. daily. 2. Calcium 600 mg 1 tablet p.o. daily. 3. Vitamin B 1 tablet p.o. daily. 4. Aspirin 81 mg p.o. daily. 5. Citalopram 10 mg p.o. daily. 6. Cholecalciferol 1000 units p.o. daily. 7. Selenium 200 mcg p.o. daily. 8. Pravastatin 40 mg p.o. at bedtime. New medications: 1. Metoprolol succinate 12.5 mg p.o. daily. 2. Lisinopril 5 mg p.o. daily. 3. Furosemide 10 mg daily until 09/17/19. 4. Clopidogrel 75 mg p.o. daily. 5. Acetaminophen 650 mg p.o. q.4 hours p.r.n. pain or fever. HOSPITAL COURSE: Mrs. Chen is a 73-year-old female with past medical history as stated above that presented to the emergency room with complaints of substernal chest pain radiating to her jaw and left shoulder. For more details about her presentation, I refer you to her history and physical. In the emergency room, the patient had an unusual troponin that was 0.81 with ischemic EKG changes with minimal ST elevation in V2. The patient was admitted to telemetry floor and a transthoracic echocardiogram showed ejection fraction of 45% to 50% with hypokinesis of the mid apical anteroseptal, anterolateral, and inferoseptal myocardium. The patient was seen in consultation by Cardiology and taken to the cath lab tech by Dr. Richardson. Cardiac catheterization revealed no significant coronary artery disease to account for the significant left ventricular systolic dysfunction described on echo. She had 25% to 30% narrowing of the ostium of the LAD and some mild luminal irregularities of the PDA. Dr. Richardson thought consideration should be given for other possible causes including Takotsubo syndrome. She was seen in followup by Dr. Cast and the impression is that the patient probably had a non-ST elevation UT and the recommendation was for aspirin 81 mg a day in combination with Plavix 75 mg a day in duration of dual antiplatelet therapy, which will be determined as outpatient. The patient has remained asymptomatic with no further episodes of chest pain. She had issues with statin in the past, so the plan is for her to be on pravastatin 40 mg p.o. at bedtime and have a CMP done on 09/01/19 and a repeat lipid profile and liver panel on 09/24/19 to continue to monitor her on statins. For her probable Takotsubo, the patient will be continued on lisinopril and Toprol therapy as she has been more compensated after diuresis. The patient's LDL goal is less than 70 on pravastatin, but given her history of liver injury with atorvastatin in the past, she will need her LFTs followed up closely. The patient's blood pressure is controlled and she will be continued on lisinopril and metoprolol. She had resolution of her symptoms and she is medically stable. She will be discharged home today. She already has a followup scheduled with Dr. Ponce on 09/02/19 at 2:45 p.m. and she was also advised to see her PCP, Dr. Blunt next week. The patient has been under a lot of stress and has a lot of anxiety. Depending on how she progresses, she may benefit of low dose of benzodiazepine as outpatient, but for now, she wants to try other relaxation techniques including meditation. PHYSICAL EXAMINATION: Vital Signs: Temperature 98.3, heart rate is 63, respiratory rate 16, oxygen saturation 95% on room air, and blood pressure is 122/65. General: The patient is a pleasant, elderly lady, sitting up in bed, in no acute distress. CVS: Normal S1, S2. Regular rate and rhythm. Chest: Breath sounds present bilaterally with no added sounds. Extremities: No edema. Her right wrist shows no signs of ecchymosis. Neuro: She is alert and oriented x3, able to move all 4 extremities. DIET: Heart-healthy diet. ACTIVITY: As tolerated. The patient received education about limitations after cardiac cath. DISPOSITION: To home. STATUS WHILE IN THE HOSPITAL: Inpatient. CONDITION AT THE TIME OF DISCHARGE: Fair. Please keep in mind this is a summarized version of the patient's hospital stay. If you need more information, please feel free to call me at [phone] or please obtain the full medical records. TIME SPENT: Approximately 45 minutes was spent on this discharge. ADDENDUM: Please note that the patient was also noted to have nocturnal hypoxia , and she will benefit from a sleep study to rule out sleep apnea as outpatient. [id number] #: [id number]/[id number] #: [id number] [facility]
[2019-08-30] MEDS ORDERED: SELENIUM 200 MCG PO SCH (09:00)
[2019-08-30] MEDS ORDERED: Furosemide TAB* 20 MG PO SCH (09:00)
== END 2019-08-29 12:55 | disposition home or self-care (01) | DRG 280 ==
LOC: ED 20:11 → MEDTELE 08-27 01:05
PROVIDERS: ADMIT Internal Medicine; ATTEND Internal Medicine
PROC: 4A023N7 Measurement of Cardiac Sampling and Pressure, Left Heart, Percutaneous Approach (ICD-10-PCS; 2019-08-27)
PROC: B2111ZZ Fluoroscopy of Multiple Coronary Arteries using Low Osmolar Contrast (ICD-10-PCS; principal; 2019-08-27 12:30)
DX: I21.4 Non-ST elevation (NSTEMI) myocardial infarction (principal); I50.21 Acute systolic (congestive) heart failure; I51.81 Takotsubo syndrome; E78.5 Hyperlipidemia, unspecified; K57.90 Diverticulosis of intestine, part unspecified, without perforation or abscess without bleeding; I34.0 Nonrheumatic mitral (valve) insufficiency; I71.2 Thoracic aortic aneurysm, without rupture; I25.10 Atherosclerotic heart disease of native coronary artery without angina pectoris; F41.9 Anxiety disorder, unspecified; I11.0 Hypertensive heart disease with heart failure; E78.00 Pure hypercholesterolemia, unspecified; K58.9 Irritable bowel syndrome, unspecified; G47.30 Sleep apnea, unspecified; F32.9 Major depressive disorder, single episode, unspecified; Z90.710 Acquired absence of both cervix and uterus; Z90.722 Acquired absence of ovaries, bilateral; Z88.8 Allergy status to other drugs, medicaments and biological substances; Z82.5 Family history of asthma and other chronic lower respiratory diseases; Z80.3 Family history of malignant neoplasm of breast; Z82.0 Family history of epilepsy and other diseases of the nervous system; Z87.891 Personal history of nicotine dependence; Z72.89 Other problems related to lifestyle; Z79.82 Long term (current) use of aspirin
CPT/HCPCS: 36415; 71045; 76937; 80048; 80053; 80061; 83036; 83880; 84484; 84520; 85025; 85347; 85610; 85730; 86850; 86900; 86901; 93005; 93306; 93458; 96361; 96374; 99156; 99157; 99284; A9270-GY; J1644; J1940; J2250; J2405; J3010; J3490